=== PATIENT | female | born 1945 | race Caucasian/White ===

== ENCOUNTER 2023-04-19 09:30 | Outpatient (RCR) | payer OTHER, SELFPAY | END 2023-04-26 14:04 | disposition home or self-care (01) | LOC: PT 09:30 | PROVIDERS: PCP Internal Medicine; Visit Provider Internal Medicine | DX: M54.16 Radiculopathy, lumbar region (principal); M19.90 Unspecified osteoarthritis, unspecified site | CPT/HCPCS: 97012; 97110; 97112 ==

== ENCOUNTER 2025-07-24 10:33 | Emergency (ER) | payer MEDICARE, SELFPAY ==
[2025-07-24] VITALS (14 sets, daily range): BP systolic 124–152; BP diastolic 61–90; PULSE 57–64; TEMP 36.6; O2SAT 90–99; BMI 24.3
--- OUTSIDE RECORDS SUMMARY | 2025-07-24 06:19 | XMS_ITS | Continuity of Care Document ---
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 Name Role Phone Melvina Regan DO Primary Care Provider Melvina Regan DO Attending Provider [phone] Marla Peters MD Referring Provider Marla Peters MD Attending Provider Marie Rebolledo APRN Attending Provider Care Teams Patient Care Team Team Status: Active Member Role Status Marcelino Regan DO Primary Care Provider Active Visit Care Team Team Status: Inactive Member Role Status Marcelino Regan DO Primary Care Provider Active Start: June 17, 2025 End: June 17, 2025 Melvina Regna DO Attending Provider Active Start: June 17, 2025 End: June 17, 2025 Marla Peters MD Referring Provider Active Star t: June 17, 2025 End: June 17, 2025 Visit Care Team Team Status: Inactive Member Role Status Marcelino Regan DO Primary Care Provider Active Start: June 23, 2025 End: June 23, 2025 Marla Peters MD Attending Provider Active Star t: June 23, 2025 End: June 23, 2025 Visit Care Team Team Status: Inactive Member Role Status Dates Melvina Regan DO Primary Care Provider Active Start: June 23, 2025 End: June 23, 2025 Marla Peters MD Attending Provider Active Star t: June 23, 2025 End: June 23, 2025 Patient Care Team Team Status: Inactive Member Role Status Dates Melvina Regan DO Primary Care Provider Active Start: July 24, 2025 End: July 24, 2025 Marie Rebolledo APRN [employer]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 Attending Provider Active Start: July End: July 24, 2025 Chief Complaint and Reason for Visit Chief Complaint Admit Date e78.2 e79.0 n28.1 n20.0 e11.21 n18.31 i1 2.9 June 17, 2025 8:30am RENAL 1 YR F/U June 23, 2025 11: 16am E83.42 E79.0 N28.1 N20.0 E11.21 N18.31 A ug2024 11:49am Left shoulder pain July 24, 2025 9:44am Reason for Visit Admit Date CKD stage 3a, GFR 45-59 ml/min June 11:16am Diabetic nephropathy associa abilio with type 2 diabetes mellitus June 23, 2025 11:16am Hypertensive chronic kidney disease with stage 1 through stage 4 chronic ki June 23, 2025 11:16am Hyperuricemia June 23, 2025 11: 16am Hypomagnesemia June 23, 2025 11: 16am Kidney stones June 23, 2025 11: 16am Renal cyst, acquired June 23, 2025 11 :16am Allergies, Adverse Reactions, Alerts Allergen Type Severity Reaction Last Updated Verified Status No Known Allergies Allergy Unknown June 23, 2025 8:38 am Yes Active Social History Smoking Status Status Start Date End Date Date of Observa tion Never smoked tobacco (finding) July 24, 2025 9:42am Observation Status Observation Response Date of Response Legal Sex Female (finding) Sex Assigned At Female 1945 Family History Relationship Condition Age at Onset Recorded Date/T doug sister Diabetes mellitus Unknown Malignant neoplasm of lung Unknown brother Presence of cardiac pacemaker Unknown father Coronary artery disease Unknown mother History of partial nephrectomy Unknown brother Malignant neoplasm of stomach Unknown mother Cerebrovascular accident (CVA) Unknown mother Pulmonary embolism Unknown brother Malignant neoplasm Unknown Unknown Diabetes mellitus Unknown Heart disease Unknown father Heart disease Unknown Unknown family member Unknown mother Unknown History of stroke Unknown sister Malignant neoplasm Unknown Diabetes mellitus Unknown Unknown Problems Active Problems Medical Problem Onset Date Status Comments Breast cancer, left breast Unknown Active Stage III chronic kidney disease Unknown Active Hypertensive chronic kidney disease with stage 1 through stage 4 chronic kidney disease, or unspecified chronic kidney disease Unknown Active Encounter for coordination of complex care Unknown Active Hyperuricemia Unknown Active Kidney stones Unknown Active [id number] Diabetes mellitus with peripheral autonomic neuropathy Unknown Active Diabetic nephropathy associa abilio with type 2 diabetes mellitus Unknown Active Triple negative breast cancer Unknown Active CKD stage 3a, GFR 45-59 ml/min Unknown Active History of atrial fibrillation Unknown Active Renal cyst, acquired Unknown Active Breast mass, left Unknown Active Hypertension Unknown Active Carcinoma of central portion of left breast in female, estrogen receptor negative Unknown Active Hypomagnesemia Unknown Active Medications Medication Status Dose Units Route Directions Qty Days St art Date Stop Date End Date Instructions Adherence Saxagliptin -Metformin (Kombiglyze Xr) 2.5-1,000 mg Tablet, Er Multiphase 24 Hr Discont inued 1 TAB PO Daily 2022 1:00am [facility] 2023 10:15 am Mometasone 0.1 % Cream Discont inued 1 APPLIC TOPICA L Daily 60 2022 1:002023 10:18 am Apply to radiation site, once daily, AFTER radiation treatments. Aspirin 325 mg Tablet Active 325 MG PO Daily [facility] 2018 1:00am Complies with drug therapy Pravastatin 40 mg tablet Active 40 MG PO Daily at bedtime [facility] 2018 1:00am Complies with drug therapy Metoprolol Tartrate 100 mg tablet Active 100 MG PO Twice daily [facility] 2018 1:00am Complies with drug therapy Gabapentin 300 mg capsule Discont inued 300 MG PO Three times daily [facility] 2018 1:00am 2023 10:13 am Lisinopril- Hydrochloro thiazide 20-25 mg tablet Active 20 - 25 MG PO Daily [facility] 2018 1:00am Complies with drug therapy Ergocalcife rol (Vitamin D2) (Vitamin D2) 50,000 unit Capsule Discont inued 1 TAB PO Daily [facility] 2018 1:00am Jun 2023 10:17 am Saxagliptin -Metformin 2.5-1,000 mg tablet, ER multiphase 24 hr Discont inued 1 TAB PO Daily at bedtime [facility] 2018 1:00am Febru abner 2022 9:07a m Krill Oil 500 mg Capsule Discont inued 2 CAP PO Daily [facility] 2018 1:00am Jun 2023 10:19 am Nitrofurant oin Macrocrysta l (Macrodanti n) 100 mg capsule Discont inued 100 MG PO Q12H 20 10 [facility] 2018 1:00am Novua ry 2022 9:07a m must administer with a meal/food Tramadol 50 mg tablet Discont inued 50 MG PO EVERY 4-6 HOURS as needed for pain 20 7 [facility] 2018 1:00am [facility] ry 2022 9:08a m Krill Oil 500 mg capsule Active 500 MG PO Daily July 01, 2024 10:16a m Complies with drug therapy Acetaminoph en 500 mg Tablet Discont inued 1000 MG PO Twice daily as needed for Pain 2022 1:00am Jun 2023 10:19 am Biotin 10,000 mcg Capsule Discont inued 49493 MCG PO Twice daily 2022 1:00am [facility] 2024 11:21 am Ibuprofen 600 mg tablet Discont inued 600 MG PO EVERY 4-6 HOURS as needed for pain 20 5 Nov2022 1:00am [facility] 2023 10:17 am do not exceed 4 doses in a 24 hour period Acetaminoph en 500 mg tablet Active 1000 MG PO Twice daily as needed for Pain July 01, 2024 10:10a m Complies with drug therapy Allopurinol 100 mg tablet Discont inued 200 MG PO Once July 01, 2024 12:00a m [facility] 2024 11:21 am Gabapentin 600 mg tablet Active 600 MG PO Four times daily July 01, 2024 12:00a m Complies with drug therapy Dapaglifloz in Propanediol (Farxiga) 5 mg tablet Active 5 MG PO Daily July 01, 2024 12:00a m Complies with drug therapy Metformin 500 mg tablet extended release 24 hr Discont inued 1000 MG PO Every evening July 01, 2024 12:00a m 2024 11:21 am Insulin Glargine U-300 Conc (Toujeo Max U-300 Solostar) 300 unit/mL (3 mL) insulin pen Discont inued 36 UNIT SUBCUT Every morning July 01, 2024 12:00a m 2024 11:21 am Magnesium 250 mg tablet Active 250 MG PO Daily July 01, 2024 12:00a m Complies with drug therapy Cholecalcif ben (Vitamin D3) 50 mcg (2,000 unit) capsule Active 50 MCG PO Daily July 01, 2024 12:00a m Complies with drug therapy Allopurinol 100 mg tablet Active 100 MG PO Daily June 23, 2025 11:19a m Complies with drug therapy Metformin 500 mg tablet extended release 24 hr Active 500 MG PO Every evening June 23, 2025 11:20a m Complies with drug therapy Insulin Glargine U-300 Conc (Toujeo Max U-300 Solostar) 300 unit/mL (3 mL) insulin pen Active 56 UNIT SUBCUT Every morning June 23, 2025 11:21a m Complies with drug therapy Hydrocodone -Acetaminop hen 5-325 mg tablet Active 1 TAB PO Every 8 hours as needed 2024 12:00a m Complies with drug therapy Immunizations Immunization Event Date Not Given Reason Dose Number 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 Lot Number Vaccine Information Statement (VIS) Detail Administration Location COVID-19 mRNA-1273 (Moderna) December 21, 2020 COVID-19 mRNA-1273 (Moderna) January 18, 2021 COVID-19 mRNA-1273 (Moderna) October 26, 2021 Medical Equipment Device Date Implanted Device Details Imaging lesion localization marker, implantable December 05, 2022 CALDERON: [id number] Issuing Agency: [employer] Device Id: [id number] Expiration Date: 2023-11-20 Lot Number: [id number] Relevant Diagnostic Tests and/or Laboratory Data Laboratory Results Test Collection Date/Time Result Date/Time Result Interpretation Reference Range Result Comment Performing Site Correcte d White Blood Count June 23, 2025 12:05pm June 23, 2025 12:52pm 6.0 10*3/uL 3.8-11.6 [facility] [id number] [address] [facility] [address] Red Blood Count June 23, 2025 12:05pm June 23, 2025 12:52pm 3.94 10*6/uL 3.60-5.00 [facility] [id number] [address] [facility] [address] Hemoglob in June 23, 2025 12:05pm June 23, 2025 12:52pm 12.2 g/dL 11.8-15.4 [facility] [id number] [address] [facility] [address] Hematocr it June 23, 2025 12:05pm June 23, 2025 12:52pm 36.9 % 34.0-46.4 [facility] [id number] [address] [facility] [address] Mean Corpuscu lar Volume June 23, 2025 12:05pm June 23, 2025 12:52pm 93.6 fL 80-100 [facility] [id number] [address] [facility] [address] Mean Corpuscu lar Hemoglob in June 23, 2025 12:05pm June 23, 2025 12:52pm 31.1 pg 24.7-34.3 [facility] [id number] [address] [facility] [address] Mean Corpuscu lar Hemoglob in Concent June 23, 2025 12:05pm June 23, 2025 12:52pm 33.2 g/dL 32.0-35.0 [facility] [id number] [address] [facility] [address] Red Cell Distribu tion Width June 23, 2025 12:05pm June 23, 2025 12:52pm 15.9 % Above high normal 11.9-15.3 [facility] [id number] [address] [facility] [address] Platelet Count June 23, 2025 12:05pm June 23, 2025 12:52pm 236 10*3/uL 150-450 [facility] [id number] [address] [facility] [address] Mean Platelet Volume June 23, 2025 12:05pm June 23, 2025 12:52pm 9.2 fL 6.3-10.7 [facility] [id number] [address] [facility] [address] Urine Color June 23, 2025 12:06pm June 23, 2025 1:18pm Light-yel low Yellow [facility] [id number] [address] [facility] [address] Urine Appearan ce June 23, 2025 12:06pm June 23, 2025 1:18pm Clear Clear [facility] [id number] [address] [facility] [address] Urine Specific [place] June 23, 2025 12:06pm June 23, 2025 1:18pm 1.023 1.001-1.03 0 [facility] [id number] [address] [facility] [address] Urine pH June 23, 2025 12:06pm June 23, 2025 1:18pm 6.0 5.0-9.0 [facility] [id number] [address] [facility] [address] Urine Leukocyt e Esterase June 23, 2025 12:06pm June 23, 2025 1:18pm 2+ Above high normal Negative [facility] [id number] [address] [facility] [address] Urine Nitrite June 23, 2025 12:06pm June 23, 2025 1:18pm Negative Negative [facility] [id number] [address] [facility] [address] Urine Protein June 23, 2025 12:06pm June 23, 2025 1:18pm Negative mg/dL Negative [facility] [id number] [address] [facility] [address] Urine Glucose (UA) June 23, 2025 12:06pm June 23, 2025 1:18pm >=1000 mg/dL Above high normal Normal [facility] [id number] [address] [facility] [address] Urine Ketones June 23, 2025 12:06pm June 23, 2025 1:18pm Negative Negative [facility] [id number] [address] [place] [address] Urine Urobilin ogen June 23, 2025 12:06pm June 23, 2025 1:18pm Normal mg/dL Normal [facility] [id number] [address] [facility] [address] Urine Bilirubi n June 23, 2025 12:06pm June 23, 2025 1:18pm Negative Negative [facility] [id number] [address] [facility] [address] Urine Occult Blood June 23, 2025 12:06pm June 23, 2025 1:18pm Negative Negative [facility] [id number] [address] [facility] [address] Urine RBC June 23, 2025 12:06pm June 23, 2025 1:18pm 1-2 [HPF] 0-4 [facility] [id number] [address] [facility] [address] Urine WBC June 23, 2025 12:06pm June 23, 2025 1:18pm 3-4 [HPF] 0-4 [facility] [id number] [address] [facility] [address] Urine Squamous Epitheli al Cells June 23, 2025 12:06pm June 23, 2025 1:18pm 3-4 [HPF] Above high normal 0-2 [facility] [id number] [address] [facility] [address] Urine Bacteria June 23, 2025 12:06pm June 23, 2025 1:18pm None seen [HPF] None Seen [facility] [id number] [address] [facility] [address] Urine Hyaline Casts June 23, 2025 12:06pm June 23, 2025 1:18pm None [LPF] 0-8 [facility] [id number] [address] [facility] [address] Glucose Level June 23, 2025 12:05pm June 23, 2025 1:09pm 190 mg/dL Above high normal 70-100 ADA recommended reference rangeRandom Glucose Reference Range is dependent on time and content of last meal. Glucose of more than 200 mg/dL in a nonstressed , ambulatory subject supports the diagnosis of Diabetes Mellitus. [facility] [id number] [address] [facility] [address] Blood Urea Nitrogen June 23, 2025 12:05pm June 23, 2025 1:09pm 37 mg/dL Above high normal 7-25 [facility] [id number] [address] [facility] [address] Creatini ne June 23, 2025 12:05pm June 23, 2025 1:09pm 1.25 mg/dL Above high normal 0.60-1.20 [facility] [id number] [address] [place] [id number] Estimate d GFR (CKD-EPI ) June 23, 2025 12:05pm June 23, 2025 1:09pm 44.117 mL/Min [facility] [id number] [address] [place] [id number] Sodium Level June 23, 2025 12:05pm June 23, 2025 1:09pm 140 mmol/L 136-145 [facility] [id number] [address] [place] [id number] Potassiu m Level June 23, 2025 12:05pm June 23, 2025 1:09pm 4.5 mmol/L 3.5-5.1 [facility] [id number] [address] [place] [id number] Chloride Level June 23, 2025 12:05pm June 23, 2025 1:09pm 104 mmol/L 98-107 [facility] [id number] [address] [place] [id number] Carbon Dioxide Level June 23, 2025 12:05pm June 23, 2025 1:09pm 30.9 mmol/L 21.0-31.0 [facility] [id number] [address] [facility] [address] Anion Gap June 23, 2025 12:05pm June 23, 2025 1:09pm 9.6 mEq/L 6.0-15.0 [facility] [id number] [address] [place] [id number] Calcium Level June 23, 2025 12:05pm June 23, 2025 1:09pm 9.7 mg/dL 8.6-10.3 [facility] [id number] [address] [place] [id number] Phosphor us Level June 23, 2025 12:05pm June 23, 2025 1:09pm 4.0 mg/dL 2.5-4.5 [facility] [id number] [address] [place] [id number] Magnesiu m Level June 23, 2025 12:05pm June 23, 2025 1:09pm 2.3 mg/dL 1.9-2.7 [facility] [id number] [address] [facility] [address] Albumin June 23, 2025 12:05pm June 23, 2025 1:09pm 4.2 g/dL 3.5-5.7 [facility] [id number] [address] [facility] [address] Uric Acid June 23, 2025 12:05pm June 23, 2025 1:09pm 4.5 mg/dL 2.3-6.6 [facility] [id number] [address] [place] [address] Choleste rol Level June 17, 2025 8:52am June 17, 2025 10:28am 174 mg/dL 140-200 Chol less than 200 mg/dl low riskChol 201-239 mg/dl borderline riskChol 240 mg/dl and greater high risk [facility] [id number] [address] [place] [address] HDL Choleste rol June 17, 2025 8:52am June 17, 2025 10:28am 31 mg/dL 23-92 HDL CHOL ATP-III CLASSIFICAT ION Cardiovascu lar RiskHDL > or equal to 60 mg/dL LOWHDL < 40 mg/dL HIGH [facility] [id number] [address] [place] [address] Triglyce rides Level June 17, 2025 8:52am June 17, 2025 10:28am 292 mg/dL Above high normal 0-149 TRIG ATP III CLASSIFICAT IONTRIG less than 150 mg/dL NormalTRIG 150-199 mg/dL Borderline highTRIG 200-500 mg/dL High TRIG greater than 500 mg/dL Very highStandar d traceable to the Center for Disease Conrtrol and Prevention (CDC) test method. [facility] [id number] [address] [facility] [address] LDL Choleste rol, Calculat ed June 17, 2025 8:52am June 17, 2025 10:28am 85 mg/dL 0-100 LDL ATP III CLASSIFICAT IONLDL less than 100 mg/dL OptimalLDL 100-129 mg/dL Near or above optimalLDL 130-159 mg/dL Borderline highLDL 160-189 mg/dL HighLDL greater than 189 mg/dL Very high [facility] [id number] [address] [facility] [address] VLDL Choleste rol June 17, 2025 8:52am June 17, 2025 10:28am 58 mg/dL [facility] [id number] [address] [facility] [address] Choleste rol/HDL Ratio June 17, 2025 8:52am June 17, 2025 10:28am 5.6 <5.0 [facility] [id number] [address] [facility] [address] 25-Clune xy Vitamin D Total June 23, 2025 12:05pm June 23, 2025 1:36pm 47.3 ng/mL 30-100 VITAMIN D STATUS 25(OH)VITAM IN D RANGE (ng/mL) Deficient <20 Insufficien t 20 to <30Sufficie nt 30 to 100Referenc e: Shravan MF,Chantale HEREDIA, Duane womack HAYNES, et al. Evaluation, treatment, and prevention of vitamin D deficiency; an Endocrine Society clinical practice guideline. JCEM. 2010; 96(7):1911- 30. [facility] [id number] [address] [facility] [address] Parathyr oid Hormone (Intact) June 23, 2025 12:05pm June 23, 2025 1:27pm 37.0 pg/mL 12-88 [facility] [id number] [address] [facility] [address] Pharmacy Creatini ne Clearanc e (Chem June 23, 2025 12:05pm June 23, 2025 1:09pm N/A [facility] [id number] [address] [place] [address] Urine Microalb umin mg/dl June 23, 2025 12:06pm June 23, 2025 1:27pm < 0.7 mg/dL 0.0-1.8 [facility] [id number] [address] [facility] [address] Urine Random Creatini ne June 23, 2025 12:06pm June 23, 2025 1:27pm 91.00 mg/dL No reference range established [facility] [id number] [address] [place] [address] Urine Microalb umin/Cre atinine Ratio June 23, 2025 12:06pm June 23, 2025 1:27pm TNP Test not performed [facility] [id number] [address] [facility] [address] Urine Random Total Protein June 23, 2025 12:06pm June 23, 2025 1:27pm 8 mg/dL 0-9 [facility] [id number] [address] [facility] [address] Urine Protein/ Creatini ne Ratio June 23, 2025 12:06pm June 23, 2025 1:27pm 88 mg/g{Cre} 0-200 [facility] [id number] [address] [facility] [address] Vital Signs Vital Reading Result Reference Range Collection Date/Time Height 62 [in_i] June 23 11:19am Weight 59.87 kg June 23 11:19am Heart Rate 69 /min 60-100 June 23 11:19am Respiratory rate 16 /min -June 23, 2025 11:19am Oxygen saturation by Pulse oximetry 96 % 95-100 June 23, 2025 11: 19am BP Systolic 102 mm[Hg] 100-140 June 23 11:24am BP Diastolic 64 mm[Hg] 60-100 June 23 11:24am BMI (Body Mass Index) 24.1 kg/m2 June 23, 2025 11:19am Height 62 [in_i] July 24, 2025 9:53am Weight 60.44 kg July 24, 2025 9:53am Body Temperature 97.6 [degF] 97.6-99.0 July 242024 9:53am Heart Rate 56 /min 60-100 July 24, 2025 9:53am Respiratory rate 18 /min -July 242024 9:53am Oxygen saturation by Pulse oximetry 97 % 95-100 July 24, 2025 9:53am BP Systolic 133 mm[Hg] 100-140 July 24, 2025 9:53am BP Diastolic 78 mm[Hg] 60-100 July 24, 2025 9:53am BMI (Body Mass Index) 24.3 kg/m2 Sept2024 9:53am Advance Directives Advance Directive Response Recorded Date/ Time Advance Directives No July 9:42am Insurance Providers Guarantor María Elena Perry Address [address] [place] [phone] Contact Info. Home Phone: Payer Policy Id Subscriber's Name Subscriber Id Effectiv e Date Expiration Date MMO MCR Adv PFFS [id number] María Elena Perry [id number] Encounters Encounter Location(s) Arrival/Admit Date Discharge/Depart Date Provider(s) Departed Clinical -Lab [facility] June 17, 2025 8:30am June 17, 2025 8:31am Shaun Jones DO Departed Physician/Prov ider Office Visit -[facility] June 23, 2025 11:16am June 23, 2025 11:40am Marla Peters MD Departed Clinical -Lab [facility] June 23, 2025 11:49am June 23, 2025 11:50am Marla Peters MD Departed Physician/Prov ider Office Visit -[facility] [place] July 24, 2025 9:44am July 24, 2025 10:18am Marie Rebolledo APRN Recent Diagnosis Onset Date Admit Date CKD stage 3a, GFR 45-59 ml/min Unknown A ug2024 11:16am Diabetic nephropathy associa abilio with type 2 diabetes mellitus Unknown June 23, 2025 11:16am Hypertensive chronic kidney disease with stage 1 through stage 4 chronic ki Unknown June 23, 2025 11:16am Hyperuricemia Unknown June 23, 2025 11:16am Hypomagnesemia Unknown June 23, 2025 11:16am Kidney stones Unknown June 23, 2025 11:16am Renal cyst, acquired Unknown June 23, 2025 11:16am Assessments Diagnosis Onset Date Resolution Status Admit Date CKD stage 3a, GFR 45-59 ml/min acute June 23, 2025 11:16am Diabetic nephropathy associa abilio with type 2 diabetes mellitus acute Au 2024 11:16am Hypertensive chronic kidney disease with stage 1 through stage 4 chronic ki acute June 23, 2 025 11:16am Hyperuricemia acute June 23, 2025 11:16am Hypomagnesemia acute June 11:16am Kidney stones acute June 23, 2025 11:16am Renal cyst, acquired acute Augu st 2024 11:16am Plan of Treatment Author María Elena Alexandre [facility] Authored June 23, 2025 8:3 9am Blood pressure is low here i n the clinic. Patient has no symptoms. No dizziness . No fever No chills. will continue same BP medication and asked her to monitor BP at home and to go to ED if remains low.Patient verbalized understanding She has mild CKD stage III related to diabetes and hypertension kidney function has been stable. mild proteinuria. She has a well-controlled blood pressure. Diabetes is well controlled as well. Patient already on lisinopril. Since she has mild CKD with almost no proteinuria and well-controlled blood pressure on lisinopril, will follow up once a year. Avoid NSAIDs. Continue good hydration Lab before next visit She follow-up with Dr. Melvina Yoder.. She stated that diabetes is well controlled. Patient already on lisinopril. Spot urine / creatinine ration 94 mg/g. Patient has remote history of recurrent nephrolithiasis . she used to follow-up with at [facility]. She has not been seen for a few years. Most recent bilateral kidney ultrasound in December 08 showed no evidence of kidney stones Patient has bilateral renal cyst seems to be acquired most likely related to CKD and not contributing to progression of chronic kidney disease Will repeat renal US for next visit. UA is down to 5.0 from 9.4 with adding allopurinol 200 mg PO daily. Will continue same dose and re check UA next visit. Mg is improved to normal with Mg supplement . Advised the patient to continue taking OTC Mg supplement. Future Tests Future scheduled test information is unavailable Pending Tests Test Name Ordered Date Scheduled Date Renal Function Panel June 23, 2025 11:32am 12 Months Future Visits Future appointment information is unavailable Referrals to Other Providers Referral information is unavailable Future Procedures Procedure Name Ordered Date Scheduled Date Hemogram CBC Without Diff June 23, 2025 11:32 am 12 Months Magnesium June 23, 2025 11:32am 12 Paresh hs Protein Creat Ratio Ur Random June 23, 2025 1 1:32am 12 Months Parathyroid Hormone Intact June 23, 2025 11:3 2am 12 Months Urinalysis June 23, 2025 11:32am 12 Paresh hs Uric Acid June 23, 2025 11:32am 12 Paresh hs Vitamin D 25 Hydroxy Total June 23, 2025 11:3 2am 12 Months Future Medications Future medication information is unavailable Patient Instructions Patient instructions are unavailable
--- OUTSIDE RECORDS SUMMARY | 2025-07-24 10:43 | XMS_ITS | Encounter Summary ---
Author Organization [facility] Address [address] [place] [address] Care Team Providers Care Athletic Shoe Designer Name Role Phone Melvina Regan DO Unavailable [phone] Melvina Regan DO Primary Care Provider Cuate Herndon DO Unavailable [phone] Marla Peters MD Unavailable Juan Berumen DO Unavailable [phone] Filemon Ortega MD Unavailable [phone] Reason for Visit * Reason Onset Date Comments Med Refill 05/20/2025 Encounter Details Date Type Department Care Team (Late st Contact Info) Description 05/20/2025 Refill [facility] [address] [facility] [address] [place] [address] Melvina Regan DO [address] [facility] [address] [place] [address] Arthritis of multiple sites Social History Tobacco Use Types Packs/Day Years Used Date Smoking Tobacco: Never Smokeless Tobacco: Never Alcohol Use Standard Drinks/Week Comments Not Currently 0 (1 standard drink = 0.6 oz pur e alcohol) Pt does not drink alcohol AUDIT-C Answer Date Recorded Frequency of Alcohol Consumption Not on file 08/29/2024 Q2: How many drinks containi ng alcohol do you have on a typical day when you are drinking? Patient does not drink Frequency of Binge Drinking Not on file 08/19 PHQ-2 Answer Date Recorded Patient Health Questionnaire-2 Score 0 03/03/2025 Comments Unknown Sex and Gender Information Value Date Recorded Sex Assigned at Not on file Legal Sex Female 7:22 PM EDT Gender Identity Not on file Sexual Orientation Not on file Occupation Industry Job Start Date Job End Date Retired Not on file Not on file Not on file documented as of this encounter Miscellaneous Notes * Telephone Encounter - Melvina Regan DO - 2025 8:21 AM EDT OARRS reviewed. Last filled 03/31/2025 (#20). Rx sent to pharmacy documented in this encounter Plan of Treatment Upcoming Encounters Date Type Department Care Team (Late st Contact Info) Description 09/01/2025 10:45 AM EDT Office Visit [facility] [address] [place] [address] Melvina Regan DO [address] [place] [address] 10/09/2025 11:00 AM EST Office Visit [facility] [address] [facility] 150 [place] [phone] Cuate Herndon DO 703 [facility] 150 [place] [address] documented as of this encounter Visit Diagnoses Diagnosis Arthritis of multiple sites documented in this encounter Care Teams Athletic Shoe Designer Relationship Specialty Start Date End Date Melvina Regan DO [address] [place] [address] PCP - Medical [place] 11/19/1911/18 Melvina Regan DO [address] [place] [address] PCP - General Internal Medicine 05/28/23 Cuate Herndon DO [address] [facility] [address] [place] [address] Referring Physician General Surgery 02/27/24 Marla Peters MD 703 [facility] 150 [place] [address] Nephrology 02/27/24 Juan Berumen, DO [address] [place] [address] Referring Physician Obstetrics and Gynecology 02/27/24 Filemon Ortega MD [address] [place] [address] Referring Physician Neurology 02/27/24 [facility] 02/27/24 documented as of this encounter
--- OUTSIDE RECORDS SUMMARY | 2025-07-24 10:43 | XMS_ITS | Encounter Summary ---
Author Organization [facility] Address [address] [facility] [place] [address] Care Team Providers Care Bullet Slug Casting Machine Operator Name Role Phone Melvina Regan DO Unavailable [phone] Melvina Regan DO Primary Care Provider Cuate Herndon DO Unavailable [phone] Marla Peters MD Unavailable Juan Berumen DO Unavailable [phone] Filemno Ortega MD Unavailable [phone] Encounter Details Date Type Department Care Team (Late st Contact Info) Description 08/29/2023 Orders Only [facility] [place] [facility] [address] [facility] [address] [place] [address] A, Unknown Practice [address] [place] [id number] Social History Tobacco Use Types Packs/Day Years Used Date Smoking Tobacco: Never Smokeless Tobacco: Never Alcohol Use Standard Drinks/Week Comments Not Currently 0 (1 standard drink = 0.6 oz pur e alcohol) Comments Unknown Sex and Gender Information Value Date Recorded Sex Assigned at Not on file Legal Sex Female 7:22 PM EDT Gender Identity Not on file Sexual Orientation Not on file Occupation Industry Job Start Date Job End Date Retired Not on file Not on file Not on file documented as of this encounter Plan of Treatment Upcoming Encounters Date Type Department Care Team (Late st Contact Info) Description 09/01/2025 10:45 AM EDT Office Visit [facility] [address] [facility] [address] [place] [address] Melvina Regan DO [address] [place] [address] 10/09/2025 11:00 AM EST Office Visit [facility] [address] [place] [address] Cuate Herndon DO [address] [facility] 150 [place] [address] documented as of this encounter Procedures Procedure Name Priority Date/Time Associated Diagnosis Comments SCANNED LABS Routine 07/09/2023 1:55 PM EDT documented in this encounter Results * SCANNED LABS (07/09/2023 1:55 PM EDT) us Unknown Practice A LAB CHG PERFORMABLES Final Re sult documented in this encounter Visit Diagnoses Not on filedocumented in this encounter Care Teams Bullet Slug Casting Machine Operator Relationship Specialty Start Date End Date Melvina Regan DO [address] [facility] [address] [place] [address] PCP - Medical [facility] 11/19/1911/18 Melvina Regan DO [address] [place] [address] PCP - General Internal Medicine 05/28/23 Cuate Herndon DO [address] [place] [address] Referring Physician General Surgery 02/27/24 Marla Peters MD [address] [place] [address] Nephrology 02/27/24 Juan Berumen DO [address] [place] [address] Referring Physician Obstetrics and Gynecology 02/27/24 Filemon Oretga MD [address] [place] [address] Referring Physician Neurology 02/27/24 [facility] 02/27/24 documented as of this encounter
--- OUTSIDE RECORDS SUMMARY | 2025-07-24 10:43 | XMS_ITS | Encounter Summary ---
Author Organization [facility] Address [address] [facility] [place] [address] Care Team Providers Care Deputy County Clerk Name Role Phone Melvina Regan DO Unavailable [phone] Melvina Regan DO Primary Care Provider Cuate Herndon DO Unavailable [phone] Marla Peters MD Unavailable Juan Berumen DO Unavailable [phone] Filemon Ortega MD Unavailable [phone] Encounter Details Date Type Department Care Team (Late st Contact Info) Description 03/13/2025 Orders Only [facility] [place] [facility] [address] [facility] [address] [place] [phone] Unallocated, Noms MD Fabi [address] [place] [address] Social History Tobacco Use Types Packs/Day Years [...] Description 09/01/2025 10:45 AM EDT Office Visit [facility] [place] [facility] [address] [place] [address] Melvina Regan DO [address] [place] [address] 10/09/2025 11:00 AM EST [facility] Visit [facility] [address] [facility] 150 [place] [address] Cuate Herndon, DO 703 [facility] 150 [place] [address] documented as of this encounter Procedures Procedure Name Priority Date/Time Associated Diagnosis Comments DIABETIC RETINOPATHY SCREENING - OU - BOTH EYES Routine 03/13/2025 11:08 AM EDT documented in this encounter Results * Diabetic Retinopathy Screening - OU - Both Eyes (03/13/2025 11:08 AM EDT) Anatomical Region Laterality Modality Head Other us Noms Provider Unallocated OPHTH PHOTOGRAPHY F inal Result documented in this encounter Visit Diagnoses Not on filedocumented in this encounter Care Teams Deputy County Clerk Relationship Specialty Start Date End Date Melvina Regan DO [address] [place] [address] PCP - Medical [place] 11/19/1911/18 Melvina Regan DO [address] [place] [address] PCP - General Internal Medicine 05/28/23 Cuate Herndon DO 703 [facility] 150 [place] [address] Referring Physician General Surgery 02/27/24 Marla Peters MD 703 [facility] 150 [place] [address] Nephrology 02/27/24 Juan Berumen DO [address] [facility] 210 [place] [address] Referring Physician Obstetrics and Gynecology 02/27/24 Filemon Ortega MD [address] [place] [address] Referring Physician Neurology 02/27/24 [facility] 02/27/24 documented as of this encounter
--- OUTSIDE RECORDS SUMMARY | 2025-07-24 10:43 | XMS_ITS | Encounter Summary ---
Author Organization [facility] Address [address] [facility] [place] [address] Care Team Providers Care Box Car Loader Name Role Phone Melvina Regan DO Unavailable [phone] Melvina Regan DO Primary Care Provider Cuate Herndon DO Unavailable [phone] Marla Peters MD Unavailable Juan Berumen DO Unavailable [phone] Filemon Ortega MD Unavailable [phone] Reason for Visit * Reason Comments Med Refill Encounter Details Date Type Department Care Team (Late st Contact Info) Description 04/21/2023 Refill [facility] [address] [place] [address] Melvina Regan, DO [address] [facility] 230 [place] [address] Social History Tobacco Use Types Packs/Day Years Used Date Smoking Tobacco: Never Assessed Comments Unknown Sex and Gender Information Value Date Recorded Sex Assigned at Not on file Legal Sex Female 7:22 PM EDT Gender Identity Not on file Sexual Orientation Not on file documented as of this encounter Plan of Treatment Upcoming Encounters Date Type Department Care Team (Late st Contact Info) Description 09/01/2025 10:45 AM EDT Office Visit [facility] [address] [place] [address] Melvina Regan DO [address] [place] [address] 10/09/2025 11:00 AM EST [facility] [address] [place] [address] Cuate Herndon DO [address] [place] [address] documented as of this encounter Visit Diagnoses Not on filedocumented in this encounter Care Teams Box Car Loader Relationship Specialty Start Date End Date Melvina Regan DO [address] [place] [address] PCP - Medical [place] 11/19/1911/18 Melvina Regan, DO [address] [place] [address] PCP - General Internal Medicine 05/28/23 Cuate Herndon DO [address] [place] [address] Referring Physician General Surgery 02/27/24 Marla Peters MD [address] [place] [address] Nephrology 02/27/24 Juan Berumen, DO [address] [place] [address] Referring Physician Obstetrics and Gynecology 02/27/24 Filemon Ortega MD [address] [place] [address] Referring Physician Neurology 02/27/24 [facility] 02/27/24 documented as of this encounter
--- OUTSIDE RECORDS SUMMARY | 2025-07-24 10:43 | XMS_ITS | Encounter Summary ---
Author Organization [facility] Address [address] [facility] [place] [address] Care Team Providers Care Cassandra Architect Name Role Phone Melvina Regan DO Unavailable [phone] Melvina Regan DO Primary Care Provider Cuate Herndon DO Unavailable [phone] Marla Peters MD Unavailable Juan Berumen DO Unavailable [phone] Filemon Ortega MD Unavailable [phone] Reason for Visit * Reason Onset Date Comments Med Refill 07/22/2025 Encounter Details Date Type Department Care Team (Late st Contact Info) Description 07/22/2025 Refill [facility] [address] [facility] [address] [place] [address] Letty Buck LPN Type 2 diabetes mellitus with stage 3a chronic kidney disease, with long-term current use of insulin (HCC) Social History Tobacco Use Types Packs/Day Years [...] Medicine [address] [place] [address] Melvina Regan DO [address] [place] [address] 10/09/2025 11:00 AM EST Office Visit [facility] [address] [place] [address] Cuate Herndon DO [address] [place] [address] documented as of this encounter Visit Diagnoses Diagnosis Type 2 diabetes mellitus with stage 3a chronic kidney disease, with long-term current use of insulin (HCC) documented in this encounter Care Teams Cassandra Architect Relationship Specialty Start Date End Date Melvina Regan DO [address] [place] [address] PCP - Medical [place] 11/19/1911/18 Melvina Regan DO [address] [place] [address] PCP - General Internal Medicine 05/28/23 Cuate Herndon DO [address] [place] [address] Referring Physician General Surgery 02/27/24 Marla Peters MD 703 [facility] 150 [place] [address] Nephrology 02/27/24 Juan Berumen DO [address] [place], [place] [address] Referring Physician Obstetrics and Gynecology 02/27/24 Filemon Ortega MD [address] [place] [address] Referring Physician Neurology 02/27/24 [facility] 02/27/24 documented as of this encounter
--- OUTSIDE RECORDS SUMMARY | 2025-07-24 10:43 | XMS_ITS | Encounter Summary ---
Author Organization [facility] Address [address] [facility] [place] [address] Care Team Providers Care Grain Manager Name Role Phone Melvina Regan DO Unavailable [phone] Melvina Regan DO Primary Care Provider Cuate Herndon DO Unavailable [phone] Marla Peters MD Unavailable Juan Berumen DO Unavailable [phone] Filemon Ortega MD Unavailable [phone] Encounter Details Date Type Department Care Team (Late st Contact Info) Description 03/11/2024 Orders Only [facility] [place] [facility] [address] [place] [address] A, Unknown Practice [address] [place], [place] [phone] Social History Tobacco Use Types Packs/Day Years Used Date Smoking Tobacco: Never Smokeless Tobacco: Never Alcohol Use Standard Drinks/Week Comments Not Currently 0 (1 standard drink = 0.6 oz pur e alcohol) PHQ-2 Answer Date Recorded Patient Health Questionnaire-2 Score 0 02/29/2024 Comments Unknown Sex and Gender Information Value [...] Description 09/01/2025 10:45 AM EDT Office Visit [facility] [address] [place] [address] Melvina Regan DO [address] [place] [address] 10/09/2025 11:00 AM EST [facility] [address] [place] [address] Cuate Herndon DO [address] [place] [address] documented as of this encounter Procedures Procedure Name Priority Date/Time Associated Diagnosis Comments DIABETES EYE EXAM Routine 03/10/2024 11:23 AM EDT documented in this encounter Results * Diabetes Eye Exam (03/10/2024 11:23 AM EDT) us Unknown Practice A HEALTH MAINTENANCE Final Resu lt documented in this encounter Visit Diagnoses Not on filedocumented in this encounter Care Teams Grain Manager Relationship Specialty Start Date End Date Melvina Regan DO [address] [place] [address] PCP - Medical [facility] 11/19/1911/18 Melvina Regan DO [address] [place] [address] PCP - General Internal Medicine 05/28/23 Cuate Herndon DO [address] [place] [address] Referring Physician General Surgery 02/27/24 Marla Peters MD 703 [facility] 150 [place] [address] Nephrology 02/27/24 Juan Berumen DO [address] [place] [address] Referring Physician Obstetrics and Gynecology 02/27/24 Filemon Ortega MD [address] [place] [address] Referring Physician Neurology 02/27/24 [facility] 02/27/24 documented as of this encounter
--- OUTSIDE RECORDS SUMMARY | 2025-07-24 10:43 | XMS_ITS | Encounter Summary ---
Author Organization [facility] Address [address] [place] [address] Care Team Providers Care Oreman Name Role Phone Melvina Regan DO Unavailable [phone] Melvina Regan DO Primary Care Provider Cuate Herndon DO Unavailable [phone] Marla Peters MD Unavailable Juan Berumen DO Unavailable [phone] Filemon Ortega MD Unavailable [phone] Encounter Details Date Type Department Care Team (Late st Contact Info) Description 06/17/2025 [facility] [address] [facility] [address] [place] [address] Melvina Regan, DO [address] [facility] 230 [place] [address] Lipid panel Social History Tobacco Use Types Packs/Day Years [...] [address] [place] [address] Melvina Regan DO [address] [place] [address] 10/09/2025 11:00 AM EST Office Visit [facility] [address] [place] [address] Cuate Herndon DO [address] [place] [address] documented as of this encounter Visit Diagnoses Not on filedocumented in this encounter Care Teams Oreman Relationship Specialty Start Date End Date Melvina Regan DO [address] [place] [address] PCP - Medical [place] 11/19/1911/18 Melvina Regan DO [address] [place] [address] PCP - General Internal Medicine 05/28/23 Cuate Herndon DO [address] [place] [address] Referring Physician General Surgery 02/27/24 Marla Peters MD 7[address] [facility] 150 [place] [address] Nephrology 02/27/24 Juan Berumen DO [address] [place] [address] Referring Physician Obstetrics and Gynecology 02/27/24 Filemon Ortega MD [address] [place] [address] Referring Physician Neurology 02/27/24 [facility] 02/27/24 documented as of this encounter
--- OUTSIDE RECORDS SUMMARY | 2025-07-24 10:43 | XMS_ITS | Encounter Summary ---
Author Organization [facility] Address [address] [place] [address] Care Team Providers Care Web Graphic Designer Name Role Phone Melvina Regan DO Unavailable [phone] Melvina Regan DO Primary Care Provider Cuate Herndon DO Unavailable [phone] Marla Peters MD Unavailable Juan Berumen DO Unavailable [phone] Filemon Ortega MD Unavailable [phone] Reason for Visit * Reason Onset Date Comments Med Refill 03/30/2025 Encounter Details Date Type Department Care Team (Late st Contact Info) Description 03/30/2025 Refill [facility] [address] [facility] [address] [place] [address] Melvina Regan DO [address] [facility] [address] [place] [address] Arthritis of multiple sites Social History Tobacco [...] Telephone Encounter - Melvina Regan DO - 03/31/2025 5:25 PM EDT OARRS reviewed. Last filled 01/29/2205 #20. Rx sent to in PC * Telephone Encounter - Letty Buck LPN - 03/30/2025 9:43 AM EDT Pt requesting a refill on Hydrocodone Acetaminophen to [facility] documented in this encounter Plan of Treatment Upcoming Encounters Date Type Department Care Team (Late st Contact Info) Description 09/01/2025 10:45 AM EDT Office Visit [facility] [place] [facility] [address] [place] [phone] Melvina Regan DO [address] [place] [address] 10/09/2025 11:00 AM EST [facility] [address] [facility] [address] [place] [address] Cuate Herndon DO 703 [facility] [address] [place] [address] documented as of this encounter Visit Diagnoses Diagnosis Arthritis of multiple sites documented in this encounter Care Teams Web Graphic Designer Relationship Specialty Start Date End Date Melvina Regan, DO [address] [place] [address] PCP - Medical [facility] 11/19/1911/18 eMlvina Regan, DO [address] [place] [address] PCP - General Internal Medicine 05/28/23 Cuate Herndon DO [address] [place] [address] Referring Physician General Surgery 02/27/24 Marla Peters MD [address] [place] [address] Nephrology 02/27/24 Juan Berumen, DO [address] [place] [address] Referring Physician Obstetrics and Gynecology 02/27/24 Filemon Ortega MD [address] [place] [address] Referring Physician Neurology 02/27/24 [facility] 02/27/24 documented as of this encounter
--- OUTSIDE RECORDS SUMMARY | 2025-07-24 10:43 | XMS_ITS | Encounter Summary ---
Author Organization [facility] Address [address] [place] [address] Care Team Providers Care Manager Wind Name Role Phone Melvina Regan DO Unavailable [phone] Melvina Regan DO Primary Care Provider Cuate Herndon DO Unavailable [phone] Marla Peters MD Unavailable Juan Berumen DO Unavailable [phone] Filemon Ortega MD Unavailable [phone] Encounter Details Date Type Department Care Team (Late st Contact Info) Description 12/05/2024 Orders Only [facility] [address] [facility] [address] [place] [address] Landy Santos, CASINO ACCOUNTANT [address] [facility] [address] [place] [address] Postmenopausal Social History Tobacco Use Types Packs/Day Years [...] Medicine [address] [place] [address] Melvina Regan DO [address] [place] [address] 10/09/2025 11:00 AM EST Office Visit [facility] [address] [facility] [address] [place] [address] Cuate Herndon, DO [address] [facility] [address] [place] [address] documented as of this encounter Procedures Procedure Name Priority Date/Time Associated Diagnosis Comments DEXA BONE DENSITY Routine 12/05/2024 2:35 PM EST Postmenopausal documented in this encounter Results * DEXA bone density (12/05/2024 2:35 PM EST) Anatomical Region Laterality Modality Body Radiographic Mary Beth ging us Landy Santos CASINO ACCOUNTANT IMG DXA PROCEDURES Final Res ult documented in this encounter Visit Diagnoses Diagnosis Postmenopausal Asymptomatic postmenopausal status (age-related) (natural) documented in this encounter Care Teams Manager Wind Relationship Specialty Start Date End Date Melvina Regan DO [address] [place] [address] PCP - Medical [place] 11/19/1911/18 Melvina Regan DO [address] [place] [address] PCP - General Internal Medicine 05/28/23 Cuate Herndon DO [address] [facility] [address] [place] [address] Referring Physician General Surgery 02/27/24 Marla Peters MD [address] [facility] [address] [place] [address] Nephrology 02/27/24 Juan Berumen DO [address] [place] [address] Referring Physician Obstetrics and Gynecology 02/27/24 Filemon Ortega MD [address] [place] [address] Referring Physician Neurology 02/27/24 [facility] 02/27/24 documented as of this encounter
--- OUTSIDE RECORDS SUMMARY | 2025-07-24 10:43 | XMS_ITS | Encounter Summary ---
Author Organization [facility] Address [address] [place] [address] Care Team Providers Care Environmental Communications Specialist Name Role Phone Melvina Regan DO Unavailable [phone] Melvina Regan DO Primary Care Provider Cutae Herndon DO Unavailable [phone] Marla Peters MD Unavailable Juan Berumen DO Unavailable [phone] Filemon Ortega MD Unavailable [phone] Encounter Details Date Type Department Care Team (Late st Contact Info) Description 10/23/2023 External Result Encounter [facility] External Department Unsolicited Cuate Herndon, DO [address] [facility] [address] [place] [address] Social History Tobacco Use Types Packs/Day Years [...] Encounters Date Type Department Care Team (Late Contact Info) Description 09/01/2025 10:45 AM EDT Office Visit [facility] [place] [facility] [address] [place] [address] Melvina Regan, DO [address] [place] [address] 10/09/2025 11:00 AM EST [facility] [address] [place] [address] Cuate Herndon Tenisha, DO [address] [place] [address] documented as of this encounter Procedures Procedure Name Priority Date/Time Associated Diagnosis Comments BI MAMMOGRAM DIAGNOSTIC BILATERAL 10/23/2023 9:21 AM EST documented in this encounter Results * Bilateral diagnostic mammogram (10/23/2023 9:21 AM EST) Anatomical Region Laterality Modality Breast Bilateral Mammography 10/23/2023 9:21 AM EST Impressions 10/24/2023 10:48 AM EST NO MAMMOGRAPHIC EVIDENCE OF MALIGNANCY. ROUTINE FOLLOW-UP IS RECOMMENDED IN ONE YEAR. RESULT CODE: 2 Benign Findings(s) DENSITY CODE: 2 (approximately 25-50% glandular) FOLLOW UP: 1YR The false-negative rate of mammography is approximately 10-percent. Management of a palpable abnormality must be based on clinical grounds. Impression dictated by: Sam Chavez M.D.10/23/2023 9:28 AM Dictation Location: [facility] Transcribed By: [facility] 10/23/23927 Dictated By: Sam Chavez II, MD 10/23/23920 Signed By: <Electronically signed by Sam Chavez II, MD in OV> 10/23/23927 Narrative 10/24/2023 10:48 AM EST [facility] Main [address] [address] Mammography Report Signed Patient: María Elena Perry MR#: [id number] : 1945 Acct:[id number] Age/Sex: 78 / F ADM Date: 10/23/23 Loc: [place] Room: Type: REG CLI Attending Dr: Cuate Herndon DO Copies to: DO Melvina Whelan DO Ordering Provider: Cuate Herndon DO Date of Service: 10/23/23 MM/MM diagnostic mammo BI w/CAD: Z85.3 DIAGNOSTIC BILATERAL MAMMOGRAM - FULL FIELD DIGITAL WITH TOMOSYNTHESIS CLINICAL DATA: HISTORY OF LEFT-SIDED BREAST CANCER STATUS POST LUMPECTOMY AND RADIATION, FOLLOW-UP Tomosynthesis mediolateral, Craniocaudal , and mediolateral oblique views of the bilateral breasts were obtained using low-dose digital technique. Comparison is made to prior studies from 12/01/2022 and 10/02/2022. This examination was reviewed with the aid of CAD. There is scattered fibroglandular tissue bilaterally. Benign-appearing calcifications are present. There is evidence of interval lumpectomy left breast. Benign-appearing calcifications are present bilaterally. There are benign-appearing lymph nodes along the right chest wall. There are no dominant masses, typically malignant calcifications or architectural distortion. There has been no significant interval change. MM/MM diagnostic mammo BI w/CAD Procedure Note Radiology, Radiologist, MD - 10/24/2023 [facility] [place] [address] Mammography Report Signed Patient: María Elena Perry JMR#: [id number] : 7Acct:[id number] Age/Sex: 78 / FADM Date: 10/23/23 Loc: [place] Room:Type: REG CLI Attending Dr: Cuate Herndon DO Copies to: DO Melvina Whelan DO Ordering Provider: Cuate Herndon DO Date of Service: 10/23/23 MM/MM diagnostic mammo BI w/CAD: Z85.3 DIAGNOSTIC BILATERAL MAMMOGRAM - FULL FIELD DIGITAL WITH TOMOSYNTHESIS CLINICAL DATA: HISTORY OF LEFT-SIDED BREAST CANCER STATUS POST LUMPECTOMYAND RADIATION, FOLLOW-UP Tomosynthesis mediolateral, Craniocaudal , and mediolateral oblique viewsof the bilateral breasts were obtained using low-dose digital technique. Comparison is made toprior studies from 12/01/2022 and 10/02/2022. This examination was reviewed with the aid of CAD. There is scattered fibroglandular tissue bilaterally. Benign- appearingcalcifications are present. There is evidence of interval lumpectomy left breast. Benign- appearingcalcifications are present bilaterally. There are benign-appearing lymph nodes along the right chestwall. There are no dominant masses, typically malignant calcifications or architecturaldistortion. There has been no significant interval change. MM/MM diagnostic mammo BI w/CAD IMPRESSION: NO MAMMOGRAPHIC EVIDENCE OF MALIGNANCY. ROUTINE FOLLOW-UP IS RECOMMENDED IN ONE YEAR. RESULT CODE: 2 Benign Findings(s) DENSITY CODE: 2 (approximately 25-50% glandular) FOLLOW UP: 1YR The false-negative rate of mammography is approximately 10-percent. Management of a palpable abnormality must be based on clinical grounds. Impression dictated by: Sam Chavez M.D.10/23/2023 9:28 AM Dictation Location: [facility] Transcribed By: [facility] 10/23/23927 Dictated By: Sam Chavez II, MD 10/23/23920 Signed By: <Electronically signed by Sam Chavez II, MD inOV> 10/23/23927 Cuate Herndon DO IMG BI PROCEDURES Final R esult documented in this encounter Visit Diagnoses Not on filedocumented in this encounter Care Teams Environmental Communications Specialist Relationship Specialty Start Date End Date Melvina Regan DO [address] [place] [address] PCP - Medical [facility] 11/19/1911/18 Melvina Regan DO [address] [place] [address] PCP - General Internal Medicine 05/28/23 Cuate Herndon DO [address] [facility] [address] [place] [address] Referring Physician General Surgery 02/27/24 Marla Peters MD [address] [facility] [address] [place] [address] Nephrology 02/27/24 Juan Berumen DO [address] [place] [address] Referring Physician Obstetrics and Gynecology 02/27/24 Filemon Ortega MD [address] [place] [address] Referring Physician Neurology 02/27/24 [facility] 02/27/24 documented as of this encounter
--- OUTSIDE RECORDS SUMMARY | 2025-07-24 10:43 | XMS_ITS | Encounter Summary ---
Author Organization [facility] Address [address] [place] [address] Care Team Providers Care Power Lineman Technician Name Role Phone Melvina Regan DO Unavailable [phone] Melvina Regan DO Primary Care Provider Cuate Herndon DO Unavailable [phone] Marla Peters MD Unavailable Juan Berumen DO Unavailable [phone] Filemon Ortega MD Unavailable [phone] Encounter Details Date Type Department Care Team (Late st Contact Info) Description 11/18/2024 External Result Encounter [facility] External Department Unsolicited Cuate Herndon, DO [address] [place] [address] Social History Tobacco Use Types [...] Medicine [address] [place] [address] Melvina Regan, DO [address] [place] [address] 10/09/2025 11:00 AM EST [facility] [address] [place] [address] Cuate Herndon, DO [address] [place] [address] documented as of this encounter Procedures Procedure Name Priority Date/Time Associated Diagnosis Comments BI MAMMOGRAM DIAGNOSTIC TOMOSYNTHESIS BILATERAL 11/18/2024 1:49 PM EST documented in this encounter Results * Bilateral diagnostic mammogram with tomosynthesis (11/18/2024 1:49 PM EST) Anatomical Region Laterality Modality Breast Bilateral Mammography 11/18/2024 1:49 PM EST Impressions 11/18/2024 2:23 PM EST NO MAMMOGRAPHIC EVIDENCE OF MALIGNANCY. ROUTINE FOLLOW-UP IS RECOMMENDED IN ONE YEAR. RESULT CODE: 2 Benign Findings(s) DENSITY CODE: 2 (approximately 25-50% glandular) FOLLOW UP: 1YR The false-negative rate of mammography is approximately 10-percent. Management of a palpable abnormality must be based on clinical grounds. Patient was entered into a reminder system with a target due date for the next mammogram. Impression dictated by: Keren Good M.D.11/18/2024 2:00 PM Dictation Location: [facility] Transcribed By: JOSEPH 11/18/24 1400 Dictated By: Keren Good MD 11/18/24 1349 Signed By: <Electronically signed by MD Keren Good in OV> 11/18/24 1400 Narrative 11/18/2024 2:23 PM EST [facility] Main [place] [id number] Mammography Report Signed Patient: María Elena Perry MR#: [id number] : 1945 Acct:[id number] Age/Sex: 79 / F ADM Date: 11/18/24 Loc: [place] Room: Type: REG CLI Attending Dr: Cuate Herndon DO Copies to: DO Melvina Whelan DO Ordering Provider: Cuate Herndon DO Date of Service: 11/18/24 MM/MM diagnostic mammo BI w/CAD: Z85.3 CLINICAL DATA: History of left breast cancer. BILATERAL DIAGNOSTIC MAMMOGRAMS - FULL FIELD DIGITAL WITH TOMOSYNTHESIS AND CAD Tomosynthesis craniocaudal and mediolateral oblique views of both breasts were obtained using low- dose digital technique. Comparison is made to prior studies from August 06, 2019 through October 23, 2023. This examination was reviewed with the aid of CAD. There are scattered fibroglandular densities. There is postoperative scarring and Biozorb at the central superior left breast posteriorly. Benign and vascular calcifications are present. There are no developing masses, typically malignant calcifications or architectural distortion. There has been no significant interval change. MM/MM diagnostic mammo BI w/CAD Procedure Note Radiology, Radiologist, MD - 11/18/2024 [facility] Main [address] [address] Mammography Report Signed Patient: María Elena Perry JMR#: [id number] : 1945cct:[id number] Age/Sex: 79 / FADM Date: 11/18/24 Loc: [place] Room:Type: REG CLI Attending Dr: Cuate Herndon DO Copies to: Cuate ItDO Melvina fraser DO Ordering Provider: Cuate Herndon DO Date of Service: 11/18/24 MM/MM diagnostic mammo BI w/CAD: Z85.3 CLINICAL DATA: History of left breast cancer. BILATERAL DIAGNOSTIC MAMMOGRAMS - FULL FIELD DIGITAL WITH TOMOSYNTHESISAND CAD Tomosynthesis craniocaudal and mediolateral oblique views of both breastswere obtained using low- dose digital technique. Comparison is made to prior studies fromAugust 06, 2019 through October 23, 2023. This examination was reviewed with the aid of CAD. There are scattered fibroglandular densities. There is postoperativescarring and Biozorb at the central superior left breast posteriorly. Benign and vascularcalcifications are present. There are no developing masses, typically malignant calcifications or architecturaldistortion. There [...] abnormality must be based on clinical grounds. Patient was entered into a reminder system with a target due date for thenext mammogram. Impression dictated by: Keren Good M.D.11/18/2024 2:00 PM Dictation Location: [facility] Transcribed By: [facility] 11/18/24 1400 Dictated By: Keren Good MD 11/18/24 1349 Signed By: <Electronically signed by MD Keren Good in OV> 11/18/24 1400 Cuate Herndon DO IMG BI PROCEDURES Edited Result - Final documented in this encounter Visit Diagnoses Not on filedocumented in this encounter Care Teams Power Lineman Technician Relationship Specialty Start Date End Date Melvina Regan DO [address] [place] [address] PCP - Medical [place] 11/19/1911/18 Melvina Regan, DO [address] [place] [address] PCP - General Internal Medicine 05/28/23 Cuate Herndon DO [address] [facility] [address] [place] [address] Referring Physician General Surgery 02/27/24 Marla Peters MD [address] [facility] [address] [place] [address] Nephrology 02/27/24 Juan Berumen DO [address] [place] [address] Referring Physician Obstetrics and Gynecology 02/27/24 Filemon Ortega MD [address] [place] [address] Referring Physician Neurology 02/27/24 [facility] 02/27/24 documented as of this encounter
--- OUTSIDE RECORDS SUMMARY | 2025-07-24 10:43 | XMS_ITS | Clinical Summary ---
Author Organization [facility] Address [address] [place], [place] [id number] Care Team Providers Care Pot Filler Name Role Phone Unavailable Primary Care Provider Unavailabl e Allergies No known active allergies Medications MULTIVITAMIN TAB Take one(1) tablet daily. 0 9 Active metoprolol tartrate(LOPRES SOR 100 MG TAB) Take one(1) tablet twice daily. 0 0 Active lisinopril-hydr ochlorothiazide 20-25 mg ORAL per tablet Take 1 tablet by mouth once daily. 0 1 Active pravastatin (PRAVACHOL) 40 mg ORAL tablet Take 1 tablet by mouth daily at bedtime. 0 1 Active aspirin 325 mg ORAL tablet Take 1 tablet by mouth once daily. 0 1 Active Sitagliptin-Met formin (JANUMET) 50-500 mg per tablet Take 1 tablet by mouth twice daily with meals. Active conjugated estrogens (PREMARIN) vaginal cream Use 0.625 Applicators vaginally twice a week. Active SAXAGLIPTIN HCL/METFORMIN HCL (KOMBIGLYZE XR ORAL)Indication s:UTI (lower urinary tract infection) Take 1 tablet by mouth once daily. Active Van Lear-3 Fatty Acids 500 mg capIndications: Calculus of kidney,Pyuria,R enal cyst Take 500 mg by mouth once daily. 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 Bilateral renal cysts 09/24/2014 UTI (lower urinary tract infection) 09/23/2013 Acquired cyst of kidney 03/28/2011 Urgency of urination 02/18/2009 Calculus of kidney 02/18/2009 Essential hypertension, benign 02/18/2009 Pure hypercholesterolemia 02/18/2009 Abdominal pain, unspecified site 02/18/2009 Type II or unspecified type diabetes mellitus without mention of complication, not stated as uncontrolled 02/18/2009 Family History Medical History Relation Comments Stomach cancer [Other] Brother Ischemic Heart Disease Father Diabetes Maternal Aunt Diabetes Sister Relation Status Comments Brother Father Maternal Aunt Sister Social History Tobacco Use Types Packs/Day Years Used Date Smoking Tobacco: Never Alcohol Use Standard Drinks/Week Comments Yes 0 (1 standard drink = 0.6 oz pur e alcohol) Rare glass of wine Comments No Sex and Gender Information Value Date Recorded Sex Assigned at Not on file Legal Sex Female 8:19 AM EST Gender Identity Not on file Sexual Orientation Not on file Occupation Industry Job Start Date Job End Date 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 Not on file Not on file Not on file Last Filed Vital Signs Vital Sign Reading Time Taken Comments Blood Pressure 113/76 09/23/2013 3:06 PM EST Pulse 67 09/23/2013 3:06 PM EST Temperature 36.2 C (97.1 F) 09/23/2013 3:06 PM EST Respiratory Rate 14 05/17/2009 3:26 PM EDT Oxygen Saturation 95% 03/24/2009 11:37 AM EDT Inhaled Oxygen Concentration - - Weight 71.2 kg (157 lb) 09/23/2013 3:06 PM EST Height 157.5 cm (5' 2 ) 09/23/2013 3:06 PM EST Body Mass Index 28.72 09/23/2013 3:06 PM EST Plan of Treatment Health Maintenance Due Date Last Done Comments Anxiety Screening 1965 Depression Screening 1965 Hepatitis C Screening 1965 DTaP,Tdap,Td Vaccine (1 - Tdap) 1966 Pneumococcal Vaccine: 50+ (1 of 1 - PCV) 1997 Shingrix Vaccine (1 of 2) 1997 Diabetes Screening 03/23/2012 03/23/2009, 0 03/22/2009, 03/21/2009, Additional history exists Bone Density Screening 2012 RSV Vaccine (1 - 1-dose 75+ series) 2022 Advance Directive Discussion 11/19/2024 Influenza Vaccine (#1) 2025 Procedures Procedure Name Priority Date/Time Associated Diagnosis Comments BASIC METABOLIC PANEL STAT 03/23/2009 3:55 AM EDT from Last 3 Months or Most Recently Relevant to Health Maintenance Results * (ABNORMAL) BASIC METABOLIC PNL (03/23/2009 3:55 AM EDT) Glucose 98 65 - 100 mg/dL [facility] BUN 16 8 - 25 mg/dL [facility] Creatinine 0.53(L) 0.70 - 1.40 mg/dL [facility] Sodium 140 132 - 148 mmol/L [facility] Potassium 4.0 3.5 - 5.0 mmol/L [facility] Chloride 105 98 - 110 mmol/L [facility] CO2 24 23 - 32 mmol/L [facility] Anion Gap 11 0 - 15 mmol/L [facility] Calcium 8.8 8.5 - 10.5 mg/dL [facility] Blood specimen (specimen) BLOOD SPECIMEN / Unknown 03/23/2009 3:55 AM EDT Sam Boone MD LABORATORY Final Result [facility] [address] [facility] [place] [address] from Last 3 Months or Most Recently Relevant to Health Maintenance Insurance MEDICARE
--- OUTSIDE RECORDS SUMMARY | 2025-07-24 10:43 | XMS_ITS | Clinical Summary ---
Author Organization [facility] Address [address] [place] [address] Care Team Providers Care Motion Picture Scene Builder Name Role Phone Melvina Regan DO Unavailable [phone] Melvina Regan DO Primary Care Provider Cuate Herndon DO Unavailable [phone] Marla Peters MD Unavailable Juan Berumen DO Unavailable Filemon Ortega MD Unavailable Allergies No known active allergies Medications magnesium 250 MG tablet Take 1 tablet by mouth Daily Active aspirin 325 MG tablet Take 325 mg by mouth Daily Active Krill Oil 1000 MG capsule Take 1 capsule by mouth Daily Active cholecalciferol (Vitamin D-3) 50 MCG (1999) capsule 07/01/20 24 Active acetaminophen (Tylenol) 500 MG tablet 07/01/20 24 Active metFORMIN XR (Glucophage-XR) 500 MG 24 hr tabletIndications: Type 2 diabetes mellitus with stage 3a chronic kidney disease, without long-term current use of insulin (HCC) TAKE 2 TABLETS BY MOUTH IN THE EVENING WITH MEALS. DO NOT CRUSH,CHEW OR SPLIT 180 tablet 3 10/01/20 24 Active lisinopril-hydroCH LOROthiazide 20-25 MG tabletIndications: Primary hypertension Take 1 tablet by mouth once daily 90 tablet 3 11/06/20 24 Active Lancets (OneTouch Delica Plus [id number]) miscIndications:Ty pe 2 diabetes mellitus with stage 3a chronic kidney disease, with long-term current use of insulin ([facility]) Inject 1 Device under the skin 2 (two) times a week 100 each 3 11/27/19 25 Active insulin glargine (Toujeo Max SoloStar) 300 UNIT/ML injectionIndicatio ns:Type 2 diabetes mellitus with stage 3a chronic kidney disease, with long-term current use of insulin ([facility]) Inject 45 Units under the skin at bedtime 6 mL 3 12/04/19 25 026 Active metoprolol tartrate (Lopressor) 100 MG tabletIndications: Essential hypertension Take 1 tablet by mouth twice daily 180 tablet 3 12/08/19 25 Active gabapentin (Neurontin) 600 MG tabletIndications: Type 2 diabetes mellitus with stage 3a chronic kidney disease, without long-term current use of insulin ([facility]) Take 1 tablet (600 mg) by mouth in the morning and 1 tablet (600 mg) at noon and 1 tablet (600 mg) in the evening and 1 tablet (600 mg) before bedtime. 360 tablet 3 01/30/20 25 Active insulin pen needle (NovoFine Plus Pen Needle) 32G x 4 mm miscIndications:Ty pe 2 diabetes mellitus with stage 3a chronic kidney disease, without long-term current use of insulin ([facility]) Use 1 lancet daily 100 each 12 03/06/20 25 026 Active allopurinol (Zyloprim) 100 MG tabletIndications: Chronic gout due to renal impairment of multiple sites without tophus Take 2 tablets by mouth once daily 180 tablet 3 06/03/20 25 Active pravastatin (Pravachol) 40 MG tabletIndications: Mixed hyperlipidemia Take 1 tablet by mouth once daily 90 tablet 06/24/20 25 Active Farxiga 10 MGIndications:Diab etes mellitus due to underlying condition with stage 3a chronic kidney disease, without long-term current use of insulin ([facility]) Take 1 tablet by mouth once daily 30 tablet 5 07/06/20 25 Active HYDROcodone-acetam inophen ([place]) 5-325 MG tabletIndications: Arthritis of multiple sites,Lumbar radiculopathy Take 1 tablet by mouth every 8 (eight) hours if needed for moderate pain 30 tablet 07/07/20 25 09/18/2 025 Active Blood Glucose Monitoring Suppl (True Metrix Meter) w/Device kitIndications:Typ e 2 diabetes mellitus with stage 3a chronic kidney disease, with long-term current use of insulin (HCC) 1 kit in the morning and 1 kit at noon and 1 kit in the evening and 1 kit before bedtime. 1 kit 07/22/20 25 Active glucose blood (GNP True Metrix Glucose Strips) test stripIndications:T ype 2 diabetes mellitus with stage 3a chronic kidney disease, with long-term current use of insulin ([facility]) 1 each by Other route in the morning and 1 each at noon and 1 each in the evening and 1 each before bedtime. Use as instructed. 400 each 3 07/22/20 25 Active dapagliflozin (Farxiga) 10 MGIndications:Diab etes mellitus due to underlying condition with stage 3a chronic kidney disease, without long-term current use of insulin ([facility]) Take 1 tablet (10 mg) by mouth Daily 30 tablet 11 07/01/20 24 025 Discontinued glucose blood (OneTouch Ultra) test stripIndications:T ype 2 diabetes mellitus with stage 3a chronic kidney disease, without long-term current use of insulin ([facility]) Use 1 strip to check glucose twice a week 50 each 3 03/06/20 25 025 Discontinued Active Problems Problem Noted Date Diagnosed Date Vertigo 03/05/2025 Vaccine counseling 03/05/2025 Overview (03/05/2025): Discussed completing pneumococcal vaccine recommendation with Prevnar 20 or Capvaxive. While either is appropriate per current CDC guidelines, based on information I have reviewed, I do feel one is more appropriate. Advised that she can chose to get one now, or we can wait to see if the CDC updates/changes the recommendation later this year. She prefers to wait for now. Chronic kidney disease, stage 3a 08/29/2023 Overview (09/29/2024): 08/2020 referral to Nephrology due to decline in eGFR from 51 to 37. She saw Nephrology 07/2021 and was advised to f/u annually 06/2023 eGFR 45 06/2024 eGFR=48 Assessment & Plan (03/05/2025 11:20 AM EDT): -Will continue to monitor the renal function for any significant decline in eGFR. We will continue to work to optimally control any underlying conditions (DM and/or hypertension specifically) that are associated with worsening effects on kidney function and I will adjust medications as needed due to any changes in the kidney function. -Should microalbuminuria/proteinuria develop, we will discuss FDA-approved meds to decrease risk for progression to ESRD. Assessment & Plan (09/29/2024 9:39 PM EST): -We will continue to monitor your renal function for any significant decline in eGFR (which is a measure of how well your kidneys are working). We will continue to work to optimally control any underlying conditions that are associated with worsening effects on kidney function and I will adjust medications as needed due to any changes in your kidney function. Assessment & Plan (06/15/2024 6:06 PM EDT): She will be completing labs next month prior to her appt with [facility]. -We will continue to work to optimally control any underlying conditions that are associated with worsening effects on kidney function and I will adjust medications as needed due to any changes in her kidney function. Assessment & Plan (03/17/2024 4:42 PM EDT): -We will continue to monitor your renal function for any significant decline in eGFR (which is a measure of how well your kidneys are working). We will continue to work to optimally control any underlying conditions that are associated with worsening effects on kidney function and I will adjust medications as needed due to any changes in your kidney function. Assessment & Plan (08/29/2023 10:52 PM EDT): -Will need to continue to monitor your renal function for any significant decline in eGFR (which is a measure of how well your kidneys are working). We will continue to work to optimally control any underlying conditions that are associated with worsening effects on kidney function and I will adjust medications as needed due to any changes in your kidney function. Type 2 diabetes mellitus wit h stage 3a chronic kidney disease, with long-term current use of insulin 08/29/2023 Overview (03/05/2025): 02/2024: Her DM control has not improved. Since Oct we have been making medication changes and encouraging her to make dietary changes. This has not been enough to get her A1c even under 8%. Today, discussed that at this point, the most appropriate intervention is to add long acting insulin. Will likely need mealtime insulin as well once she gets used to doing injections --- 05/2024- she has had significant improvement in her glucose control since starting the Toujeo. She is currently at 36 units daily. At this time will not add anything additional, but will likely need mealtime dosing in the future. Her is still doing the daily injections for her, so I encouraged her to start trying to do this herself. 02/2025- glucose control remains relatively stable. Assessment & Plan (03/05/2025 8:47 PM EDT): -Reinforced importance of dietary modifications for fdc management. Encouraged her to work on this and we will continue current meds for now. We discussed (she) can make some adjustments in the Toujeo up to 6 units up or down if needed. -Chart reviewed to make sure patient is up to date on screenings for DM related comorbidities (ie annual dilated eye exam, annual SRIKANTH and other labs and reminded to do daily foot exams). Specific goals for A1c and BP were reviewed and ways to achieve this goals discussed. Assessment & Plan (09/29/2024 9:47 PM EST): -At this appt, I reinforced the importance of dietary modification, routine exercise and weight control for long term DM management and reduction in risk for development and progression of complications (like vision loss, kidney failure, neuropathy, and increased risk of heart attack and stroke). Chart reviewed to make sure patient is up to date on screenings for DM related comorbidities (ie annual dilated eye exam, annual SRIKANTH and other labs and reminded to do daily foot exams). Specific goals for A1c and BP were reviewed and ways to achieve this goals discussed. -Encouraged her to try to start doing her insulin injections Assessment & Plan (06/15/2024 6:04 PM EDT): Chart reviewed to make sure patient is up to date on screenings for DM related comorbidities (ie annual dilated eye exam, annual SRIKANTH and other labs and reminded to do daily foot exams). Assessment & Plan (03/17/2024 4:49 PM EDT): She is a little reluctant to start insulin because she doesn't think she will be comfortable doing injections. At this time, her is agreeable to helping with administration. She understands the importance of getting her glucose under better control in order to slow the progression of DM-related complications (and in her case, her renal disease specifically) Essential hypertension 08/29/2023 Overview (08/29/2023): prescribed metoprolol, lisinopril-HCTZ Assessment & Plan (03/05/2025 8:47 PM EDT): She has not been checking BP lately at home; but it continues to be well controlled based on in-office readings. Based on review of patient's medications and current medical status; continuation of medications most appropriate. Compliance with medications and/or management recommendations encouraged. Monitor Assessment & Plan (09/29/2024 9:42 PM EST): Her BP continues to be well controlled. Based on review of patient's medications and current medical status; continuation of medications most appropriate. Compliance with medications and/or management recommendations encouraged. We will continue to monitor BP on current meds. Assessment & Plan (06/15/2024 6:07 PM EDT): Her BP is doing fine on current rx. Based on review of patient's medications and current medical status; continuation of medications most appropriate. Compliance with medications and/or management recommendations encouraged. Will continue to monitor Assessment & Plan (03/17/2024 4:42 PM EDT): -Pt is doing fine on current rx for BP management. Based on review of patient's medications and current medical status; continuation of medications most appropriate. Compliance with medications and/or management recommendations encouraged. We will continue to monitor on current rx Assessment & Plan (08/29/2023 10:52 PM EDT): -Reinforced importance of lifestyle modifications (healthy diet choices, regular exercise and weight management) for long term control of blood pressure. Limit salt. Follow the DASH diet. Advised of increased risk of complications ( for example: stroke, heart failure, heart attack, kidney damage or ) when BP not adequately controlled. BP goals reviewed and specific recommendations to achieve the goal/maintain goal BP discussed Mixed hyperlipidemia 08/29/2023 Overview (03/05/2025): -Prescribed pravastatin -06/2023: TC-194, LDL-85, HDL-31, TG-388, TC/HDL-6.3 (Was ordered in 2023, but she did not have down). Assessment & Plan (03/05/2025 8:42 PM EDT): I transmitted order to [facility] and provided her with printed copy. She is to get this done when she has labs done for her jackscrew man in June. Since high cholesterol (especially LDL) is associated with an elevated risk of cardiovascular disease, which includes coronary artery disease, stroke and peripheral vascular disease, and has also been linked to diabetes and high blood pressure risks, by appropriately treating LDL, these risks can be reduced. Assessment & Plan (09/29/2024 9:43 PM EST): For unknown reasons [facility] lab did not perform the lipid panel that was ordered (despite patient specifically advise them that it needed to be done along with the labs ordered by Dr Cai). Will continue current dose of pravastatin and have her try again when she had her next labs done. Assessment & Plan (06/15/2024 6:08 PM EDT): -Reinforced importance of dietary modification, regular cardiovascular activity and compliance with any prescribed medication for long term management/control of lipids. High cholesterol (especially LDL) is associated with an elevated risk of cardiovascular disease. This includes coronary artery disease. stroke and peripheral vascular disease. High cholesterol has also been linked to diabetes and high blood pressure risks. By appropriately treating LDL, these risks can be reduced. Assessment & Plan (03/17/2024 4:42 PM EDT): -Reinforced importance of dietary modification, regular cardiovascular activity and compliance with any prescribed medication for long term management/control of lipids. High cholesterol (especially LDL) is associated with an elevated risk of cardiovascular disease. This includes coronary artery disease. stroke and peripheral vascular disease. High cholesterol has also been linked to diabetes and high blood pressure risks. By appropriately treating LDL, these risks can be reduced. Assessment & Plan (08/29/2023 11:02 PM EDT): TG increase from previous. Improvement in diet should help improve TG. Will monitor for now. Neuropathy of left lower extremity 08/29/2023 Overview (08/29/2023): neurontin 300 mg at bedtime started 08/2019 with good response. 08/2020 dose increase to 2 tabs daily due to some progression of sx. 02/2022- changed to 1 in AM and 2- 3 at bedtime Assessment & Plan (08/29/2023 10:55 PM EDT): -Pt is doing okay on current rx. Based on review of patient's medications and current medical status; continuation of medications most appropriate. Compliance with medications and/or management recommendations encouraged. Monitor Lumbar radiculopathy 08/29/2023 Overview (05/30/2024): EMG/NCS 11/2022 Bilateral L5 radiculopathy. Mod left and Mild right 08/2023- provided with rx for [place] (#40) for prn use when sx more severe to see if that would provide adequate relief. 05/2024- she reports this worked well and she would like a refill Assessment & Plan (08/29/2023 10:55 PM EDT): 08/2023- she has been to PT. She continues to have left leg discomfort Gout due to renal impairment 08/28/2023 Overview (08/29/2023): Taking allopurinol 200 mg daily Assessment & Plan (03/05/2025 8:43 PM EDT): No recent sx that are convincing for a gout flare. Advised to continue current dose of allopurinol and make sure to stay well hydrated in order to reduce risk for a flare up. Assessment & Plan (09/29/2024 9:46 PM EST): No recent flare up Assessment & Plan (03/17/2024 4:49 PM EDT): No recent flare ups Assessment & Plan (08/29/2023 10:54 PM EDT): She denies any sx c/w recent gout flares. Discussed that if she starts having any symptoms c/f gout flare, we will need to increase the dose of the allopurinol Arthritis of multiple sites 08/28/2023 Assessment & Plan (03/05/2025 8:45 PM EDT): - Reminded that some foods/drinks can aggravate or worsen arthritis pain. These include: Processed and red meats, Gluten-containing foods, Highly processed foods, Alcohol, Foods high in salt, Foods with high sugar content (like candy, soda, ice cream). -She needs to avoid NSAIDs due to her renal dz and hx of hematuria when she has taken it recently. Triple negative breast cancer 06/01/2023 Overview (09/29/2024): 12/2022-She saw Dr Chacon. 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 She continues to follow up with Gen Surgery (Dr Herndon) Assessment & Plan (09/29/2024 9:44 PM EST): NAD History of left breast cancer 11/19/2022 Overview (06/15/2024): 12/2022-She saw Dr Chacon. 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 She will continue to follow routinely with Dr Herndon/General Surgery Encounters Date Type Department Care Team Description 07/22/[address] [facility] [address] [place] [phone] Letty Buck LPN Type 2 diabetes mellitus with stage 3a chronic kidney disease, with long-term current use of insulin ([facility]) 07/03/[address] [facility] [address] [place] [phone] Melvina Regan, DO Diabetes mellitus due to underlying condition with stage 3a chronic kidney disease, without long-term current use of insulin ([facility]) 06/24/[address] [facility] [address] [place] [phone] Melvina Regan, DO Mixed hyperlipidemia 06/17/2025 Results Follow-Up [facility] [address] [place] [phone] Melvina Regan, DO Lipid panel 06/03/[address] [facility] [address] [place] [phone] Melvina Regan, DO Chronic gout due to renal impairment of multiple sites without tophus 05/20/[address] [facility] [address] [place] [phone] Melvina Regan, DO Arthritis of multiple sites from Last 3 Months Immunizations Immunization Administration Dates Next Due Influenza, Seasonal, Quadrivalent, Adjuvanted Influenza, trivalent, adjuvanted 08/29/2024 Pneumococcal Conjugate PCV 13 01/25/2016 Family History Medical History Relation Name Comments Stomach cancer Brother 1 Coronary artery disease Brother 2 Diabetes Brother 2 Failure to thrive Father Heart disease Father Pulmonary embolism Mother Stroke Mother diabetic coma Sister 1 Lung cancer Sister 2 Breast cancer Neg Hx Colon cancer Neg Hx Melanoma Neg Hx Ovarian cancer Neg Hx Relation Name Status Comments Brother 1 (Age 43) Brother 2 (Age 75) Father (Age 80) Mother (Age 58) Sibling Alive Sister 1 (Age 58) Sister 2 07/2020 Son x2 Social History Tobacco Use Types Packs/Day Years Used Date Smoking Tobacco: Never Smokeless Tobacco: Never Tobacco Cessation:Counseling Given: No Alcohol Use Standard Drinks/Week Comments Not Currently [...] Sign Reading Time Taken Comments Blood Pressure 110/78 04/02/2025 11:02 AM EDT Pulse 76 03/05/2025 10:27 AM EDT Temperature - - Respiratory Rate - - Oxygen Saturation 97% 03/05/2025 10:27 AM EDT Inhaled Oxygen Concentration - - Weight 56.7 kg (125 lb) 04/02/2025 11:02 AM EDT Height 157.5 cm (5' 2 ) 04/02/2025 11:02 AM EDT Body Mass Index 22.86 04/02/2025 11:02 AM EDT Plan of Treatment Upcoming Encounters Date Type Department Care Team (Late st Contact Info) Description 09/01/2025 10:45 AM EDT Office Visit [facility] [address] [place] [phone] Melvina Regan DO [address] [place] [address] 10/09/2025 11:00 AM EST Office Visit [facility] [address] [facility] [address] [place] [address] Cuate Herndon DO [address] [facility] [address] [place] [address] Health Maintenance Due Date Last Done Comments Pneumococcal Vaccine: 65+ Ye ars (2 of 2 - PPSV23) 03/21/2016 01/25/2016 Diabetes: Hemoglobin A1C 06/04/2025 025, 08/29/2024, 05/30/2024, Additional history exists Diabetes: Urine Protein Screening 06/23/2025 06/23/2024, 08/21/2022, 07/27/2021, Additional history exists Influenza Vaccine (#1) 2025 , 08/28/2023, 08/31/2022, Additional history exists Medicare Annual Wellness (AWV) 03/05/2026 03/05/2025 , 02/29/2024 Diabetes: Retinopathy Screening 03/13/2027 03/13/2025, 03/10/2024, 03/06/2022, Additional history exists Colonoscopy Discontinued 03/07/2016 Colorectal Cancer Screening Discontinued CT Colonography Discontinued FIT-DNA Discontinued FIT Discontinued FOBT Discontinued Sigmoidoscopy Discontinued Procedures Procedure Name Priority Date/Time Associated Diagnosis Comments LIPID PANEL Routine 06/17/2025 8:52 AM EDT Mixed hyperlipidemia DIABETIC RETINOPATHY SCREENING - OU - BOTH EYES Routine 03/13/2025 11:08 AM EDT POCT GLYCATED HEMOGLOBIN, TOTAL Routine 03/05/2025 10:50 AM EDT Type 2 diabetes mellitus with stage 3a chronic kidney disease, with long-term current use of insulin (HCC) MICROALBUMIN / CREATININE URINE RATIO Routine 06/23/2024 Type 2 diabetes mellitus with stage 3a chronic kidney disease, without long-term current use of insulin (HCC) COLONOSCOPY Routine 03/07/2016 12:00 PM EDT from Last 3 Months or Most Recently Relevant to Health Maintenance Results * (ABNORMAL) Lipid panel (06/17/2025 8:52 AM EDT) CHOLESTEROL 174 140 - 200 mg/dL 06/17/2025 10:28 AM EDT [facility] Comment: Chol less than 200 mg/dl low risk Chol 201-239 mg/dl borderline risk Chol 240 mg/dl and greater high risk HDL CHOLESTEROL 31 23 - 92 mg/dL 06/17/2025 10:28 AM EDT [facility] Comment: HDL CHOL ATP-III CLASSIFICATION Cardiovascular Risk HDL > or equal to 60 mg/dL LOW HDL < 40 mg/dL HIGH TRIGLYCERIDE W/REFLEX 292(H) 0 - 149 mg/dL 06/17/2025 10:28 AM EDT [facility] Comment: TRIG ATP III CLASSIFICATION TRIG less than 150 mg/dL Normal TRIG 150-199 mg/dL Borderline high TRIG 200-500 mg/dL High TRIG greater than 500 mg/dL Very high Standard traceable to the Center for Disease Conrtrol and Prevention (CDC) test method. LDL CHOLESTEROL,CALCULA REEMA 85 0 - 100 mg/dL 06/17/2025 10:28 AM EDT [facility] Comment: LDL ATP III CLASSIFICATION LDL less than 100 mg/dL Optimal LDL 100-129 mg/dL Near or above optimal LDL 130-159 mg/dL Borderline high LDL 160-189 mg/dL High LDL greater than 189 mg/dL Very high VLDL CHOLESTEROL 58 mg/dL 06/17/20 10:28 AM EDT [facility] CHOL/HDL RATIO 5.6 <5.0 06/17/2025 10:28 AM EDT [facility] Other Topography unknown / Unknown 06/17/2025 8:52 AM EDT 06/17/2025 8:52 AM EDT Melvina Regan DO LAB BLOOD ORDERABLES Fi nal Result [facility] [address] [place] [address], [facility] [address] [place] [address] * Diabetic Retinopathy Screening - OU - Both Eyes (03/13/2025 11:08 AM EDT) Anatomical Region Laterality Modality Head Other [facility] Provider Unallocated MD OPHTH PHOTOGRAPHY F inal Result * POCT glycated hemoglobin, total docked device (03/05/2025 10:50 AM EDT) Hemoglobin A1C 7.6 Blood 03/05/2025 10:5 0 AM EDT Melvina Regan DO POINT OF CARE TEST ENTE R/EDIT ORDERABLES Final Result * Microalbumin / creatinine urine ratio (06/23/2024) MICROALBUMIN, URINE 8 [facility] ALB/CREAT RATIO 96 [facility] URINE CREAT 83 [facility] Urine Urine specimen obtained by clean catch procedure / Unknown 06/23/2024 Melvina Regan DO LAB URINE ORDERABLES Fi nal Result Performing Organization Address [facility]/ZIP Co de Phone Number [facility] [address] [place] [address], * Colonoscopy (03/07/2016 12:00 PM EDT) Anatomical Region Laterality Modality Endoscopy 03/07/2016 12:0 0 PM EDT Narrative 03/07/2016 12:00 PM EDT PERFORMED AT [facility] LOCATION:[id number] Internal Hemorrhoids, grade 1; o/w normal. Done by Dr Milligan. Repeat in 10 years Procedure Note CONVERSION, GENERIC - 04/05/2023 PERFORMED AT [facility] LOCATION:[id number] Internal Hemorrhoids, grade 1; o/w normal. Done by Dr Milligan. Repeat in 10years Melvina Regan DO ENDOSCOPY PROCEDURE ORD ERABLES Final Result from Last 3 Months or Most Recently Relevant to Health Maintenance Insurance [employer] Care Teams Motion Picture Scene Builder Relationship Specialty Start Date End Date Melvina Regan DO [address] [place] [address] PCP - Medical [facility] 11/19/1911/18 Melvina Regan DO [address] [place] [address] PCP - General Internal Medicine 05/28/23 Cuate Herndon DO [address] [facility] [address] [place] [address] Referring Physician General Surgery 02/27/24 Marla Peters MD [address] [facility] [address] [place] [address] Nephrology 02/27/24 Juan Berumen DO [address] [place] [address] Referring Physician Obstetrics and Gynecology 02/27/24 Filemon Ortega MD [address] [place] [address] Referring Physician Neurology 02/27/24 [facility] 02/27/24
--- OUTSIDE RECORDS SUMMARY | 2025-07-24 10:43 | XMS_ITS | Encounter Summary ---
Author Organization [facility] Address [address] [place] [address] Care Team Providers Care Velocity Shooter Name Role Phone Melvina Regan DO Unavailable Melvina Regan DO Primary Care Provider Cuate Herndon DO Unavailable [phone] Marla Peters MD Unavailable Juan Berumen DO Unavailable Filemon Ortega MD Unavailable [phone] Reason for Visit * Reason Comments Med Refill Encounter Details Date Type Department Care Team (Late st Contact Info) Description 11/29/2023 Refill [facility] [address] [facility] [address] [place] [address] Melvina Regan DO [address] [facility] [address] [place] [address] Type 2 diabetes mellitus with stage 3a chronic kidney disease, without long-term current use of insulin (HCC) Social [...] encounter Miscellaneous Notes * Telephone Encounter - Letty Buck LPN - 11/29/2023 10:14 AM EST Approving, but needs appt for additional refills. documented in this encounter Plan of Treatment Upcoming Encounters Date Type Department Care Team (Late st Contact Info) Description 09/01/2025 10:45 AM EDT Office Visit [facility] [address] [place] [phone] Melvina Regan DO [address] [place] [address] 10/09/2025 11:00 AM EST Office Visit [facility] [address] [place] [phone] Cuate Herndon DO [address] [place] [address] documented as of this encounter Visit Diagnoses Diagnosis Type 2 diabetes mellitus with stage 3a chronic kidney disease, without long-term current use of insulin (HCC) documented in this encounter Care Teams Velocity Shooter Relationship Specialty Start Date End Date Melvina Regan DO [address] [place] [address] PCP - Medical [place] [facility] 11/19/1911/18 Melvina Regan DO [address] [place] [address] PCP - General Internal Medicine 05/28/23 Cuate Herndon DO [address] [place] [address] Referring Physician General Surgery 02/27/24 Marla Peters MD [address] [facility] [address] [place] [address] Nephrology 02/27/24 Juan Berumen DO [address] [place] [address] Referring Physician Obstetrics and Gynecology 02/27/24 Filemon Ortega MD [address] [place] [address] Referring Physician Neurology 02/27/24 [facility] 02/27/24 documented as of this encounter
--- NOTE | 2025-07-24 11:17 | ECG_ITS ---
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
[2025-07-24 11:48] LABS: Hematocrit 36.2 % (36.0-48.0); Hemoglobin 12.0 g/dL (12.0-16.0); Mean Corpuscular HGB Conc 33.1 g/dL (29.9-35.2); Mean Corpuscular Hemoglobin 31.3 pg (26.7-34.0); Mean Corpuscular Volume 94.5 fL (81.0-99.0); Platelet Count 233 10^3/uL (150-450); Red Blood Count 3.83 10^6/uL (4.20-5.40); White Blood Count 6.8 10^3/uL (4.0-11.0)
--- NOTE | 2025-07-24 11:58 | XR_ITS ---
The [address] [address] Patient Name: FREDDY AGUILAR MRN: [id number] date: 1945 Sex: F Assigned Patient Location: ER Current Patient Location: ER Accession/Order Number: [id number] Exam Date: 07/24/2025 11:50 Report Date: 07/24/2025 12:15 At the request of: JAYSON GALVAN DO Procedure: XR chest 2V PA AND LATERAL CHEST: CLINICAL HISTORY: cough and arm pain. COMPARISON: None There is a potential small granuloma at the periphery of the right lung. There is no focal parenchymal consolidation, effusion or pneumothorax. The cardiac, hilar and mediastinal silhouettes are within normal limits. There is no vascular congestion. The visualized bony thorax is intact. Mild endplate spurring is visualized at the spine. There are anchor pins at the right humeral head. The acromiohumeral interval is narrowed at the shoulders bilaterally. XR/XR chest 2V IMPRESSION: NO ACUTE CARDIOPULMONARY ABNORMALITY. Impression dictated by: Keren Good M.D. 07/24/2025 12:15 PM Dictation Location: [employer] Electronically authenticated by: [id number] Y Date: 07/24/2025 12:15
[2025-07-24 12:02] LABS: Anion Gap 12.8; Blood Urea Nitrogen 38.0 mg/dL (7.0-18.0); Calcium 9.1 mg/dL (8.5-10.1); Carbon Dioxide 27.3 mmol/L (21.0-32.0); Chloride 106 mmol/L (98-107); Estimated GFR (African America 53 (>=60 mL/min/1.73m^2); Estimated GFR (Non-African Ame 43 (>=60 mL/min/1.73m^2); Glucose 128 mg/dL (74-106); Potassium 4.1 mmol/L (3.5-5.1); Sodium 142 mmol/L (136-145)
--- NOTE | 2025-07-24 17:56 | ED.GENADUL1 ---
HPI HPI - General Adult General Chief complaint: Extremity Problem, Nontraumatic Stated complaint: L ARM PAIN Time Seen by Provider: 07/24/25 10:42 Source: patient Mode of arrival: walk-in History of Present Illness HPI narrative: Patient is a 80-year-old female presenting to the emergency department the 24-hour history of left arm pain. Patient states that she has intermittent pain radiating from the left shoulder to the left elbow. She states the pain comes and goes, cannot identify what makes the pain worse. The pain is not associate with exertion. It is not associate with any chest pain or shortness of breath. No associated nausea or vomiting. It does not radiate to her arm, back, or jaw. She denies any history of injuries to the area. She denies numbness/tingling in the extremity. No weakness in the extremity. She denies any significant neck pain or prior surgeries to her neck. Related Data Home Medications ?Medication ?Instructions ?Recorded ?Confirmed allopurinol 100 mg tablet 100 mg PO Q12H 07/24/25 07/24/25 dapagliflozin propanediol 10 mg 10 mg PO .QD 07/24/25 07/24/25 tablet (Farxiga) gabapentin 600 mg tablet 600 mg PO QID 07/24/25 07/24/25 hydrocodone 5 mg-acetaminophen 325 1 tab PO Q8H PRN pain 07/24/25 07/24/25 mg tablet insulin glargine U-300 conc 300 45 unit subcut .QHS 07/24/25 07/24/25 unit/mL (3 mL) subcutaneous pen (Toujeo Max U-300 SoloStar) lisinopril 20 1 tab PO .QD 07/24/25 07/24/25 mg-hydrochlorothiazide 25 mg tablet metformin 500 mg tablet,extended 1,000 mg PO .EM 07/24/25 07/24/25 release 24 hr metoprolol tartrate 100 mg tablet 100 mg PO BID 07/24/25 07/24/25 pravastatin 40 mg tablet 40 mg PO QPM 07/24/25 07/24/25 Allergies Allergy/AdvReac Type Severity Reaction Status Date / Time No Known Drug Allergies Allergy Verified 07/24/25 10:50 Review of Systems ROS Status of ROS 10 or more systems reviewed and unremarkable except as noted in history and below PFSH PFSH Social History Little interest or pleasure in doing things: not at all Feeling down, depressed, or hopeless: not at all Exam Narrative Exam Narrative: CONSTITUTIONAL: Well-appearing, answering questions and following commands appropriately SKIN: Was warm and dry. EYES: No conjunctival pallor EARS, NOSE, THROAT: No JVD. RESPIRATORY: Clear to auscultation bilaterally, no wheezes, crackles, or stridor, no use of accessory muscles CARDIOVASCULAR: Normal rate and regular rhythm. There is no S3, S4, murmur, rub. Radial and dorsalis pedis pulses are 2+ and symmetrical. GASTROINTESTINAL: Abdomen was soft, non-tender, and non-distended. There is no guarding or rebound tenderness MUSCULOSKELETAL: No C-spine tenderness. Negative Spurling test. Full range of motion of bilateral upper extremities. No deformities. No peripheral edema. No erythema or tenderness throughout the left upper extremity. NEUROLOGIC: Patient is awake and alert. Equal strength and sensation light touch in all extremities. Facies were symmetrical. Constitutional Vital Signs, click to edit/add: Last Vital Signs Temp 97.9 F 07/24/25 10:51 Pulse 57 L 07/24/25 12:30 Resp 11 L 07/24/25 12:30 BP 144/66 H 07/24/25 12:30 Pulse Ox 98 07/24/25 12:30 O2 Del Method Room Air 07/24/25 10:51 Course Vital Signs Vital signs: Vital Signs Temperature 97.9 F 07/24/25 10:51 Pulse Rate 62 07/24/25 10:51 Respiratory Rate 16 07/24/25 10:51 Blood Pressure 145/90 H 07/24/25 10:51 Pulse Oximetry 97 07/24/25 10:51 Oxygen Delivery Method Room Air 07/24/25 10:51 Temperature 97.9 F 07/24/25 10:51 Pulse Rate 57 L 07/24/25 12:30 Respiratory Rate 11 L 07/24/25 12:30 Blood Pressure 144/66 H 07/24/25 12:30 Pulse Oximetry 98 07/24/25 12:30 Oxygen Delivery Method Room Air 07/24/25 10:51 Medical Decision Making MDM Narrative Medical decision making narrative: Patient is a 80-year-old female presenting to the emergency room with 24-hour history of intermittent, atraumatic left upper extremity pain radiating from the left shoulder to the left elbow. Her vital signs are within normal limits. She is afebrile and hemodynamically stable. She has a completely normal examination. The left upper extremity is full range of motion without obvious deformities or skin changes. The extremity is neurovascularly intact with good strength, perfusion, and sensation. Overall, the patient appears well and has a normal physical examination. Her symptoms may be related to intermittent cervical radiculopathy or musculoskeletal pain. Given that she is elderly with nonspecific left arm pain, I did consider ACS. IV was established and cardiac workup was obtained. 12 Lead EKG: Normal sinus rhythm at a rate of 60. Normal axis. No ST segment elevations. QRS, [place], and QTc interval within normal limits. Final impression: normal sinus rhythm without evidence of acute myocardial ischemia Chest x-ray independently reviewed/interpreted by myself demonstrated no acute cardiopulmonary process. Laboratory studies were unremarkable. No significant electrolyte or metabolic derangement. No evidence of acute kidney injury. No anemia, leukocytosis, or thrombocytopenia. Troponin nonelevated. On reevaluation, patient is asymptomatic without active arm pain. I do believe the patient is stable for discharge at this time. They were instructed to follow up with their PCP for further care. Return precautions were given including any new or worsening symptoms. Patient understands and agrees to the plan. FINAL IMPRESSION: #Acute left arm pain DISPOSITION: Discharged home CONDITION: Good Lab Data Lab results reviewed: Yes I reviewed the patient's lab results Labs: Lab Results 07/24/25 Range/Units 11:28 WBC 6.8 (4.0-11.0) 10^3/uL RBC 3.83 L (4.20-5.40) 10^6/uL Hgb 12.0 (12.0-16.0) g/dL Hct 36.2 (36.0-48.0) % MCV 94.5 (81.0-99.0) fL MCH 31.3 (26.7-34.0) pg MCHC 33.1 (29.9-35.2) g/dL RDW 14.6 (11.0-15.0) % Plt Count 233 (150-450) 10^3/uL MPV 10.7 (9.5-13.5) fL Sodium 142 (136-145) mmol/L Potassium 4.1 (3.5-5.1) mmol/L Chloride 106 (98-107) mmol/L Carbon Dioxide 27.3 (21.0-32.0) mmol/L Anion Gap 12.8 BUN 38.0 H (7.0-18.0) mg/dL Creatinine 1.20 H (0.55-1.02) mg/dL Est GFR ( Amer) 53 L (>=60 mL/min/1.73m^2) Est GFR (Non-Af Amer) 43 L (>=60 mL/min/1.73m^2) BUN/Creatinine Ratio 31.7 Glucose 128 H (74-106) mg/dL Calcium 9.1 (8.5-10.1) mg/dL Troponin I High Sens 5.3 (4.0-51.3) pg/mL Imaging Data Chest x-ray: Attestation: I personally reviewed and interpreted this imaging study as follows: Radiologist's impression: ITS Impressions Chest X-Ray 07/24/25 11:58 IMPRESSION: NO ACUTE CARDIOPULMONARY ABNORMALITY. Impression dictated by: Keren Good M.D. 07/24/2025 12:15 PM Dictation Location: [employer] Electronically authenticated by: [id number] Y Date: 07/24/2025 12:15 ECG Data Attestation: I personally reviewed and interpreted this ECG as follows: Discharge Plan Discharge Chief Complaint: Extremity Problem, Nontraumatic Clinical Impression: Arm pain, left Patient Disposition: Home, Self-Care Time of Disposition Decision: 11:14 Condition: Good Mode of Transportation: Private Vehicle Prescriptions / Home Meds: No Action gabapentin 600 mg tablet 600 mg PO QID pravastatin 40 mg tablet 40 mg PO QPM metoprolol tartrate 100 mg tablet 100 mg PO BID hydrocodone-acetaminophen 5-325 mg tablet 1 tab PO Q8H PRN (Reason: pain) allopurinol 100 mg tablet 100 mg PO Q12H lisinopril-hydrochlorothiazide 20-25 mg tablet 1 tab PO .QD metformin 500 mg tablet extended release 24 hr 1,000 mg PO .EM dapagliflozin propanediol [Farxiga] 10 mg tablet 10 mg PO .QD insulin glargine U-300 conc [Toujeo Max U-300 SoloStar] 300 unit/mL (3 mL) insulin pen 45 unit SUBCUT .[facility] Print Language: Latvian Instructions: Arm Pain (ED) Referrals: BATOOL MORSE [Primary Care Provider, Internal Medicine] - 1 week Discharge Date/Time: 07/24/25 12:43
== END 2025-07-24 12:43 | disposition home or self-care (01) ==
PROVIDERS: Emergency Provider Student in an Organized Health Care Education/Training Program; PCP Internal Medicine
DX: M79.602 Pain in left arm (principal)
CPT/HCPCS: 36415; 71046; 80048; 84484; 85027; 93005; 99285